=== PATIENT | male | born 1980 | race Caucasian/White ===

== ENCOUNTER 2017-12-11 14:57 | Emergency (ER) | payer MEDICAID, SELFPAY ==
[2017-12-11 14:58] VITALS: BP 130/100; PULSE 97; RESP 16; TEMP 36.7; O2SAT 96; BMI 23.3
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
[2017-12-11 16:01] VITALS: BP 146/99; RESP 18
== END 2017-12-11 16:01 | disposition home or self-care (01) ==
PROVIDERS: Emergency Provider Emergency Medicine
DX: S62.324A Displaced fracture of shaft of fourth metacarpal bone, right hand, initial encounter for closed fracture (principal); V89.9XXA Person injured in unspecified vehicle accident, initial encounter; Y93.89 Activity, other specified; Y92.89 Other specified places as the place of occurrence of the external cause; Y99.8 Other external cause status
CPT/HCPCS: 29125; 73130; 99282

== ENCOUNTER 2018-08-25 13:27 | Emergency (ER) | payer MEDICAID, SELFPAY ==
[2018-08-25 13:28] VITALS: BP 151/99; PULSE 107; RESP 16; TEMP 37.1; O2SAT 95; BMI 23.1
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
--- NOTE | 2018-08-25 14:51 | ED.VISSUMM ---
- ER Visit Summary Date of Service: 08/25/18 Chief Complaint: Abdominal distention, blood in stool History of Present Illness: The patient is a 38 M with medical history of internal hemorrhoids who presents to the emergency department with blood in stool. Patient states for the past 2 months, he has had increasing abdominal distention. He states when he moves his bowels, he will have cherise blood. He states that he had something similar last year. He has she went and had colonoscopy by Dr. Martin. He states that they did not find any acute abnormalities. He states he did not follow-up after that. States over the past 2 months, he said some abdominal swelling, increasing distention, and pain when he moves his bowels. He states that he has had some bright red blood with bowel movements. He does not think he had fever, but does admit to chills. He does not know any specific foods that seem to make his symptoms worse. He has no history of Crohn's disease or ulcerative colitis. Physical Examination: Vital signs reviewed General: Well-nourished, well-developed Head: Normocephalic, atraumatic Eyes: Pupils equal and reactive, extraocular muscles intact Neck, supple, no lymphadenopathy Heart: Regular rate and rhythm Respiratory: No distress, clear bilaterally Abdomen: Soft, mildly distended, tender in the left lower quadrant without rebound or guarding, no peritoneal signs Back: Nontender Extremities: Nontender, no edema, no cords Skin: Normal color no rash Neuro: Alert and oriented, no focal or lateralizing deficits Test Results: [] Emergency Department Course and Treatment: The patient has had intermittent rectal bleeding. His rectal exam is benign. Given his history, I did obtain a CT of his abdomen and pelvis. Labs were also obtained. His hemoglobin is normal. CT does not show any acute intra-abdominal process. At this time, I do not suspect a dangerous cause of his bleeding. I do feel that the patient is going to require further outpatient workup. He has seen Dr. Ordonez in the past and I feel that this is reasonable. He will be placed on Bentyl, antiemetics, and stool softeners. He is comfortable with this plan of care and will be discharged home. Treatment Plan: [] Disposition: Discharge Impression: 1. Stable rectal bleeding This note was generated with Mobile Messengeration software. It may contain incorrect words, spelling, and punctuation that were not noted in review of the chart prior to signing ED Disposition - Plan for ED Patient: Disposition: Home or Assisted Living Chief Complaint: GI Bleed Instructions: ED Hematochezia Stable Prescriptions: Ondansetron [Zofran Odt] 4 mg PO Q8H PRN PRN #10 tab PRN Reason: Nausea RX: Dicyclomine HCl [Bentyl] 20 mg PO TIDAC #20 cap Docusate Sodium [Colace] 100 mg PO DAILY #20 cap Referrals: James Martin MD [STAFF PHYSICIAN] -
[2018-08-25 15:16] LABS: Absolute Lymphocyte Count 3.62 X10^3/ul (0.83-4.51); Absolute Neutrophil Count 4.4 X10^3/uL (2.0-7.7); Basophil# 0.06 X10^3/uL; Basophil% 0.6 % (0-1); Eosinophil# 0.66 X10^3/uL; Eosinophils% 6.9 % (0-5); Hematocrit 46.2 % (40-54); Hemoglobin 15.8 g/dl (13.0-16.5); Lymphocyte # 3.62 X10^3/ul (4.0); Lymphocyte % 37.8 % (19-41); Mean Corp Hgb Conc 34.2 g/gl (32-36); Mean Corpuscular Hgb 31.7 pg (27.0-32.0); Mean Corpuscular Volume 92.6 fL (80-94); Mean Platelet Vol. 10.1 fl (6.2-12.0); Monocyte# 0.83 X10^3/uL; Monocyte% 8.7 % (0-10); Neutrophil # 4.38 X10^3/uL (2.7-7.7); Neutrophil % 45.8 % (47-70); POSITIVE COUNT NO; POSITIVE DIFFERENTIAL NO; POSITIVE MORPHOLOGY NO; Platelet Count 248 K/mm3 (150-450); RBC Distribution Width CV 13.6 % (11.6-14.6); RBC Distribution Width SD 45.4 fl (35.1-43.9); Red Blood Count 4.99 M/mm3 (4.6-6.2); White Blood Count 9.6 K/mm3 (4.4-11.0)
[2018-08-25] MEDS: Morphine 4 MG/ML Syringe IV (15:17)
[2018-08-25] MEDS: Ondansetron 4 MG/2 ML Vial IV (15:17)
[2018-08-25] MEDS: 0.9% Normal Saline 1,000 ML 1000 ML IV (15:17)
[2018-08-25 15:30] LABS: AST(SGOT) 21 U/L (15-37); Alanine Aminotransfer ALT/SGPT 48 U/L (16-61); Albumin, Serum 3.8 g/dL (3.2-5.0); Alkaline Phosphatase 107 U/L (45-117); Anion Gap 4 (5-15); BUN 13 mg/dL (7-18); BUN/Creat Ratio 14.8 RATIO (10-20); Calcium,Total 9.4 mg/dL (8.5-10.1); Chloride 108 mmol/L (98-107); Creatinine, Serum 0.88 mg/dL (0.70-1.30); EST Glomerular Filtration Rate 104 mL/min (>60); Est Glom Filt Rate - Afr Amer 126 mL/min (>60); Estimated Creatinine Clearance 134.02 ml/min; Globulin 3.7 g/dL (2.2-4.2); Glucose 99 mg/dL (74-106); Potassium 4.3 mmol/L (3.5-5.1); Protein, Total 7.5 g/dL (6.4-8.2); Sodium Level 141 mmol/L (136-145)
[2018-08-25 15:43] LABS: Lactic Acid 0.8 mmol/L (0.4-2.0)
[2018-08-25 16:08] VITALS: BP 163/103; PULSE 69; RESP 15; O2SAT 99
[2018-08-25 18:14] VITALS: BP 129/77; PULSE 61; RESP 15; O2SAT 98
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
== END 2018-08-25 18:15 | disposition home or self-care (01) ==
LOC: ED 15:06
PROVIDERS: Emergency Provider Emergency Medicine
DX: K62.5 Hemorrhage of anus and rectum (principal); K64.8 Other hemorrhoids
CPT/HCPCS: 74177; 80053; 83605; 85025; 96361; 96374; 96375; 99283; J7030; Q9967; A4216; J2405

== ENCOUNTER 2018-10-06 09:22 | Day surgery (SDC) | payer MEDICAID, SELFPAY ==
[2018-09-18 15:21] VITALS: BMI 23.1
--- NOTE | 2018-10-06 | IMM_PTH ---
PATIENT: DYLLAN CARDENAS LOC: [facility] [place] U#:[id number] AGE/SX: 38/M ROOM: RE10/06/[address]: Dr. James Martin MD : 1980 BED: DIS: 10/06/2018 SPEC #: [id number] RECD: 10/08/18 14:52 STATUS: REGIS RERonen #: [id number] CECILIO: 10/06/18 00:[address]: James Martin DEPT: IMMUNOHISTOCHEMISTRY RECD BY: Shelly Ortiz ENTERED: 10/08/18 14:53 SP TYPE: IMMUNO OTHR DR: No Primary Care Phys Tissues: HEMORRHOIDS Procedures: p16 (initial) KI-67 (add) PHYSICIAN & INSTITUTION [place] [id number] SPECIMEN INFORMATION: Tissue Source: Hemorrhoids Clinical Info: Painful, bleeding hemorrhoids Specimen Number: [id number] CPT code: 14998, 98411 METHODOLOGY: Deparaffinized sections of prefer/formalin-fixed tissue or PAP/DQ stained slides are incubated with monoclonal/polyclonal antibodies/oligonucleotide probes. Localization is made via biotin free immunoperoxidase method. Appropriate controls are performed and reacted as expected. Results on target cell population are indicated in the following table: RESULTS: ANTIBODY / CLONE RESULT P16 (E6H4) positive, block staining Ki-67 (30-9) positive, moderate These tests were developed and their performance characteristics determined by [facility]. They may not have been cleared or approved by the U.S. Food and Drug Administration. The FDA has determined that such clearance or approval is not necessary. INTERPRETATION: Hemorrhoids: Consistent with moderate squamous dysplasia. SJ:delta 10/09/18 Case has been reviewed in consultation with Dr. Ziegler who concurs with the above diagnosis. IDC:AM
[2018-10-06 09:58] VITALS: BP 140/88; PULSE 78; RESP 18; TEMP 37.1; O2SAT 97; BMI 23.6
[2018-10-06] MEDS: Cefazolin 2 GM in 0.9% Normal Saline 100 ML IV (11:57)
[2018-10-06] MEDS: Bupivacaine 0.5% PF 10 ML VIAL (12:12)
[2018-10-06] MEDS: Lubricating Jelly 60 GM Tube 30 GM TOPICAL (12:17)
[2018-10-06] MEDS: Dibucaine 30 GM Tube 1 APPLIC (12:18)
--- NOTE | 2018-10-06 12:28 | PCM.OPRPT ---
Problem List (1) Internal ulcerated hemorrhoids Status: Acute (2) Rectal bleeding Status: Acute Report of Operation Date of Procedure: 10/06/18 Pre-Operative Diagnosis: 1. GI bleeding. 2. Painful internal hemorrhoid grade 3 Post-Operative Diagnosis: Same Surgery/Procedure Performed:: Exam under anesthesia and hemorrhoidectomy Specimen's removed: Anterior hemorrhoid Description of Procedure: The patient was brought back to the operating room and general anesthesia was induced. The patient was placed in a prone jackknife position. The gluteal area was exposed with tape. Next the anal area was prepped with Betadine. A digital rectal exam and speculum exam were performed. The patient only had a large anterior hemorrhoid. The posterior and lateral columns appeared normal. Next a chromic suture was used to tie off the base of the hemorrhoid at its most internal apex. Next the hemorrhoid tissue was scored on both sides with the scalpel and then using digital dissection the hemorrhoidal cushion was from the sphincter. Next once the hemorrhoid was removed the edges of mucosa were reapproximated with a running chromic locked suture. There is good hemostasis. The area was irrigated and suctioned. Next the area was then injected with Marcaine and a dibucaine soaked Gelfoam pad was placed rolled up into the anal canal. ABD and mesh panties were then applied and the patient was awoken and taken to PACU in stable condition. The patient tolerated the procedure well. Needle and sponge counts were correct x2 at the end of the case. - Admit VTE Documentation VTE Mechan Device Prophylaxis: SCD's
--- NOTE | 2018-10-06 12:33 | DCINST_ITS ---
Discharge Diet: No Restrictions Discharge Activity: Return to Normal Activity, May Not Drive - while you are taking narcotic pain medications. Do not drive, work with heavy equipment or sign legal documents for 24 hours after your surgery. Additional Activity Instructions:: Be aware that pain medications may cause nausea. You should typically eat light foods as you take your pain medications. Pain medications may also cause constipation, if you have difficulty with this please discuss with your doctor. Call your doctor if your incision/area has: Continuous Slow Oozing, Sudden Increased Bleeding, Increased Pain/ Swelling, Increased Redness, Foul Smelling Discharge, Swelling at the incision site Call your doctor if you observe: Fever of 101 or Higher Additional Dressing/Incision Instructions:: Leave the operative bandage on for 2 days. If a local anesthetic plug was placed in the anal area, try not to expel for 24-[address]ucaine ointment on the perianal area after each bowel movement and as needed. Sitz baths twice daily and after bowel movements. Allergies/Adverse Reactions: Allergies codeine Allergy (Verified 09/19/18 15:01) Hives Medications to take at Discharge Dicyclomine HCl [Bentyl] 20 mg PO TIDAC #20 cap 08/25/18 Docusate Sodium [Colace] 100 mg PO DAILY #20 cap 08/25/18 Ondansetron [Zofran Odt] 4 mg PO Q8H PRN PRN #10 tab 08/25/18 Docusate Sodium [Colace] 100 mg PO BID #20 capsule 10/06/18 Oxycodone HCl/Acetaminophen [Percocet 5/325] 1 - 2 tablet PO Q4H PRN PRN 7 Days #40 tablet 10/06/18 The following prescriptions were given: Oxycodone HCl/Acetaminophen [Percocet 5/325] 1 - 2 tablet PO Q4H PRN PRN 7 Days #40 tablet PRN Reason: Pain Docusate Sodium [Colace] 100 mg PO BID #20 capsule Primary Care Physician: Care Physician,No Primary [Primary Care Provider] - Test Results: Test results from this visit will be discussed in further detail at your follow- up appointment, if applicable. Please Follow Up With: James Martin MD When: Please call to schedule 2 week follow up appointment. [phone]
[2018-10-06 12:39] VITALS: BP 140/88; BP 165/107; PULSE 88; RESP 16; TEMP 36.7; O2SAT 96
[2018-10-06 12:45] VITALS: BP 140/88; BP 156/109; PULSE 82; RESP 16; O2SAT 95
[2018-10-06 12:59] VITALS: BP 140/88; BP 161/112; PULSE 69; RESP 18; O2SAT 98
--- NOTE | 2018-10-06 13:00 | HEM_PTH ---
PATIENT: DYLLAN CARDENAS [place] [facility] [place][id number] AGE/SX: 38/M ROOM: RE10/06/[address]: Dr. James Martin MD : 1980 BED: DIS: 10/06/2018 SPEC #: [id number] RECD: 10/06/18 15:22 STATUS: REGIS RADHA #: [id number] CECILIO: 10/06/18 13:[address]: James Martin DEPT: SURGICAL PATHOLOGY RECD BY: Taurus Arriaga ENTERED: 10/07/18 11:45 SP TYPE: HEMORRHOID OTHR DR: No Primary Care Phys Tissues: HEMORRHOIDS Procedures: Surgery Specimen Level III HEADER OPERATION: Rectal EUA, possible hemorrhoidectomy PRE-OP DIAGNOSIS: Painful hemorrhoids, bleeding TISSUE SUBMITTED: Hemorrhoids MICROSCOPIC DIAGNOSIS Hemorrhoids: A piece of anorectal mucosa with dilated and congested blood vessels, consistent with hemorrhoid. Moderate squamous dysplasia (HGSIL and DANIEL II). See comment. BEATRIZ:delta 10/08/18 COMMENT Immunohistochemistry ([id number]) for surrogate HPV marker (p16) supports the above diagnosis. This case has been reviewed in consultation with Dr. Ziegler who concurs with the above diagnosis. MICROSCOPIC DESCRIPTION Slides are reviewed. GROSS DESCRIPTION Received in fixative is one container labeled with the patient's name and designated hemorrhoids. The specimen consists of a single irregular fragment of glistening mucosa with attached hemorrhagic submucosal tissue measuring 2.5 x 1 x 1 cm. The specimen is bisected along its long axis and totally submitted in one cassette. / AM:delta 10/07/18 TC:5 CPT: 97672
[2018-10-06 13:14] VITALS: BP 140/88; BP 155/99; PULSE 69; RESP 18; TEMP 36.6; O2SAT 97
[2018-10-06] MEDS: oxyCODONE 5 MG Tablet PO (13:34)
[2018-10-06] MEDS: Acetaminophen 325 MG Tablet 650 MG PO (13:55)
[2018-10-06 14:23] VITALS: BP 140/88; BP 148/98; PULSE 55; RESP 16; TEMP 36.9; O2SAT 97
== END 2018-10-06 14:26 | disposition home or self-care (01) ==
LOC: SDC 09:22 → AC 09:34
PROVIDERS: Referring Provider Surgery; Visit Provider Surgery
PROC: (CPT 46255; principal; 2018-10-06 12:45)
DX: K64.2 Third degree hemorrhoids (principal); F17.200 Nicotine dependence, unspecified, uncomplicated; Z79.899 Other long term (current) drug therapy
CPT/HCPCS: 46255; 88304; 88341; 88342; J7120; J2405

== ENCOUNTER → 2018-10-13 09:51 | Outpatient (CLI) | payer MEDICAID, SELFPAY ==
[2018-10-06 09:58] VITALS: BMI 23.6
[2018-10-13 11:52] LABS: HIV - WCH Non-Reactive (Nonreactive)
== END ==
PROVIDERS: Visit Provider Surgery
DX: K62.82 Dysplasia of anus (principal)
CPT/HCPCS: 36415; 86703

== ENCOUNTER → 2018-11-24 07:26 | Outpatient (CLI) | payer MEDICAID, SELFPAY ==
[2018-11-12 16:19] VITALS: BMI 24.6
[2018-11-24 09:00] LABS: BUN 24 mg/dL (7-18); Creatinine, Serum 0.99 mg/dL (0.70-1.30); Glucose 103 mg/dL (74-106)
[2018-11-24 09:01] LABS: Anion Gap 9 (5-15); BUN/Creat Ratio 24.2 RATIO (10-20); Calcium,Total 10.1 mg/dL (8.5-10.1); Chloride 109 mmol/L (98-107); EST Glomerular Filtration Rate 91 mL/min (>60); Est Glom Filt Rate - Afr Amer 110 mL/min (>60); Sodium Level 142 mmol/L (136-145)
== END ==
PROVIDERS: Family Provider Internal Medicine; PCP Internal Medicine; Referring Provider Nurse Practitioner Family; Visit Provider Nurse Practitioner Family
DX: I10 Essential (primary) hypertension (principal)
CPT/HCPCS: 36415; 80048

== ENCOUNTER → 2018-12-11 14:13 | Outpatient (CLI) | payer MEDICAID, SELFPAY ==
[2018-11-27 15:00] VITALS: BMI 24.6
--- NOTE | 2018-12-11 14:17 | EKG12_ITS ---
Test Reason : Blood Pressure : / mmHG Vent. Rate : 075 BPM Atrial Rate : 075 BPM P-R Int : 140 ms QRS Dur : 084 ms QT Int : 360 ms P-R-T Axes : 036 016 017 degrees QTc Int : 402 ms Normal sinus rhythm Minimal voltage criteria for LVH, may be normal variant Borderline ECG Confirmed by STEVE GOEL, VANDANA ([id number]), editorial cartoonist LENORA MTZ ([id number]) on 12/12/2018 8:35:55 AM Referred By: Landen Ferraro Confirmed By:VANDANA WILSON MD
[2018-12-11 14:57] LABS: Absolute Lymphocyte Count 3.73 X10^3/ul (0.83-4.51); Absolute Neutrophil Count 3.8 X10^3/uL (2.0-7.7); Basophil# 0.06 X10^3/uL; Basophil% 0.7 % (0-1); Eosinophil# 0.65 X10^3/uL; Eosinophils% 7.3 % (0-5); Hematocrit 47.3 % (40-54); Hemoglobin 15.9 g/dl (13.0-16.5); Lymphocyte # 3.73 X10^3/ul (4.0); Lymphocyte % 41.8 % (19-41); Mean Corp Hgb Conc 33.6 g/gl (32-36); Mean Corpuscular Volume 92.2 fL (80-94); Mean Platelet Vol. 10.3 fl (6.2-12.0); Monocyte# 0.69 X10^3/uL; Monocyte% 7.7 % (0-10); Neutrophil # 3.79 X10^3/uL (2.7-7.7); Neutrophil % 42.4 % (47-70); Platelet Count 272 K/mm3 (150-450); RBC Distribution Width CV 13.5 % (11.6-14.6); RBC Distribution Width SD 44.5 fl (35.1-43.9); Red Blood Count 5.13 M/mm3 (4.6-6.2); White Blood Count 8.9 K/mm3 (4.4-11.0)
[2018-12-11 15:00] LABS: POSITIVE COUNT NO; POSITIVE DIFFERENTIAL NO; POSITIVE MORPHOLOGY NO
[2018-12-11 15:17] LABS: Cholesterol 238 mg/dL (200); High Density Lipoprotein 37 mg/dL; Triglycerides 399 mg/dL; Very Low Density Lipoprotein 80 mg/dL (5-40)
== END ==
PROVIDERS: Family Provider Internal Medicine; PCP Internal Medicine; Referring Provider Internal Medicine; Visit Provider Internal Medicine
DX: E78.5 Hyperlipidemia, unspecified (principal); R53.83 Other fatigue; I10 Essential (primary) hypertension
CPT/HCPCS: 36415; 80061; 85025; 93005

== ENCOUNTER → 2019-01-09 | Outpatient (CLI) | payer MEDICAID, SELFPAY ==
[2018-12-25 13:08] VITALS: BMI 24.6
--- NOTE | 2019-01-09 08:40 | ECHOCS_ITS ---
Reason For Study: HTN Procedure This was a 2D Doppler, Color Flow transthoracic echocardiogram. Contrast injection was performed. Exam performed in department. Left Ventricle Normal LV size. Mild concentric left ventricular hypertrophy. Left ventricular systolic function is normal. The estimated ejection fraction is 60 %. No regional wall motion abnormalities noted. Right Ventricle Normal RV size. Normal systolic function. Atria Normal left atrium. Normal right atrium. Mitral Valve Normal mitral valve. Mild (1+) eccentric mitral valve insufficiency. Tricuspid Valve Normal tricuspid valve. Aortic Valve Normal aortic valve. Trisinus/trileaflet aortic valve. Pulmonic Valve Normal pulmonic valve. Great Vessels Normal aortic root. The pulmonary artery is normal size. Normal inferior vena cava. Pericardium/Pleural No pericardial effusion. Medication Definity0.3ml given slow IV push to enhance endocardial definition. MMode/2D Measurements & Calculations LVIDd: 4.1 cm IVSd: 1.4 cm Ao root diam: 3.1 cm LVIDs: 2.7 cm LVPWd: 1.4 cm RVDd: 3.5 cm FS: 33.0 % LAV(MOD-bp): 38.6 ml LVAd ap4: 37.1 cm2 SV(MOD-sp4): 74.8 ml LAV(MOD-bp) Indexed: 18.3 ml/m2 EDV(MOD-sp4): 116.4 ml LAV(MOD-sp2): 43.4 ml EDV(sp4-el): 122.9 ml LAV(MOD-sp4): 32.3 ml LVAs ap4: 18.9 cm2 ESV(MOD-sp4): 41.6 ml ESV(sp4-el): 40.0 ml EF(MOD-sp4): 64.3 % EF(sp4-el): 67.4 % SV(sp4-el): 82.9 ml LA A4 area: 14.2 cm2 LA dimension(2D): 3.2 cm RA A4 area: 14.3 cm2 Doppler Measurements & Calculations MV E max martínez: 45.7 cm/sec Lat Peak E' Martínez: 7.4 cm/sec Med Peak E' Martínez: 6.0 cm/sec MV A max martínez: 77.0 cm/sec E/E' lat: 6.2 E/E' med: 7.6 MV E/A: 0.59 Ao V2 max: 146.9 cm/sec LV V1 max: 109.1 cm/sec PA V2 max: 110.7 cm/sec Ao max P.6 mmHg LV V1 max P.8 mmHg Ao V2 mean: 104.6 cm/sec Ao mean P.8 mmHg Ao V2 VTI: 28.7 cm Interpretation Summary Normal LV size. Mild concentric left ventricular hypertrophy. Left ventricular systolic function is normal. The estimated ejection fraction is 60 %. Mild (1+) eccentric mitral valve insufficiency. Contrast injection was performed. Ordering Physician: Landen Ferraro Referring Physician: Landen Ferraro Performed By: Argelia Oliveira, STEPHANIE, RVT
--- NOTE | 2019-01-09 08:40 | RDU_ITS ---
Reason For Study: HYPERTENSION Right Renal Artery Left Renal Artery Right renal artery ostium Left renal artery ostium 120.3/42.7 123.7/24.7 RSV/EDV. PSV/EDV. Right renal artery proximal Left renal artery proximal PSV/EDV 141.3/38.3 PSV/EDV. 122.3/44.6 . Right renal artery mid 164.6/58.9 Left renal artery mid 135.3/62.7 PSV/EDV. PSV/EDV . Right renal artery distal Left renal artery distal 130.0/44.3 149.4/55.6 PSV/EDV. PSV/EDV. Right Renal Parenchyma Left Renal Parenchyma Upper Pole Medula 32.1/14.9 Left upper pole medulla 47.4/22.2 PSV/EDV. PSV/EDV . Right upper pole medulla EDR .46 . Left upper pole medulla EDR .47 . Right upper pole medulla R.I. .54 . Left upper pole medulla R.I. .53 . Upper Romario Cortx 28.4/14.2 PSV/EDV. UP Cortex 37.5/15.6 PSV/EDV. Right upper pole cortex EDR .5 . Left upper pole cortex EDR .42 . Right upper pole cortex R.I. .50 . Left upper pole cortex R.I. .58 . Right lower Pole medulla 40.0/19.8 Left lower Pole medulla 48.5/17.8 PSV/EDV . PSV/EDV . Right lower pole medulla EDR .49 . Left lower pole medulla EDR .37 . Right lower pole medulla R.I. .51 . Left lower pole medulla R.I. .63 . Lower Pole Cortex 34.5/16.7 Lower Pole Cortx 48.5/23.3 PSV/EDV. PSV/EDV. Left lower pole cortex EDR .48 . Right lower pole cortex EDR .48 . Left lower pole cortex R.I. .52 . Right lower pole cortex R.I. .52 . Left Renal Hilar Right Renal Hilar LT Hilar avg 63.9/21.1 PSV/EDV . Right Hilar avg 74.1/30.1 PSV/EDV. Left hilar acceleration time 70 Right hilar acceleration time 60 m/sec. m/sec. Left Renal Dimensions Right Renal Dimensions Left kidney size 12.0 cm . Right kidney size 11.3 cm . Left cortical dimension 1.7 cm . Right cortical dimension 1.5 cm . Aorta Proximal abdominal aorta 1.5 x 1.4 cm . Distal abdominal aorta 1.3 x 1.3 cm . Proximal abdominal aorta peak systolic velocity is 109.4 cm/sec . Distal abdominal aorta peak systolic velocity is 148.2 cm/sec . Interpretation Summary <60% stenosis bilateral renal arteries. Normal renal length right kidney 11.3cm and left kidney 12 cm Normal aorta 1.3 x 1.3cm diameter Slightly increased aortic velocity suspicous for mild disesae. Ordering Physician: Landen Ferraro Referring Physician: Landen Ferraro Performed By: Ailyn Escamilla RVT
[2019-01-09 10:58] LABS: ALB/GLOB Ratio 1.1 RATIO (0.9-2.4); AST(SGOT) 31 U/L (15-37); Alanine Aminotransfer ALT/SGPT 67 U/L (16-61); Albumin, Serum 4.1 g/dL (3.2-5.0); Alkaline Phosphatase 105 U/L (45-117); Anion Gap 5 (5-15); BUN 13 mg/dL (7-18); BUN/Creat Ratio 14.6 RATIO (10-20); Chloride 110 mmol/L (98-107); Creatinine, Serum 0.89 mg/dL (0.70-1.30); EST Glomerular Filtration Rate 103 mL/min (>60); Est Glom Filt Rate - Afr Amer 124 mL/min (>60); Globulin 3.6 g/dL (2.2-4.2); Glucose 93 mg/dL (74-106); Potassium 4.3 mmol/L (3.5-5.1); Protein, Total 7.7 g/dL (6.4-8.2); Sodium Level 141 mmol/L (136-145); T4 Free Direct 0.89 ng/dL (0.76-1.46); Thyroid Stim Hormone (TSH) 0.96 uIU/mL (0.358-3.74)
== END | disposition home or self-care (01) ==
LOC: CVS 08:38
PROVIDERS: Family Provider Internal Medicine; PCP Internal Medicine; Referring Provider Internal Medicine; Visit Provider Internal Medicine
DX: I10 Essential (primary) hypertension (principal); R00.0 Tachycardia, unspecified
CPT/HCPCS: 36415; 80053; 84439; 84443; 93306; 93975; Q9957; A4216; C8929

== ENCOUNTER 2019-01-24 18:13 | Emergency (ER) | payer MEDICAID, SELFPAY ==
[2019-01-09 11:18] VITALS: BMI 24.6
[2019-01-24 18:15] VITALS: BP 163/106; PULSE 117; RESP 16; TEMP 36.8; O2SAT 99; BMI 25.0
--- NOTE | 2019-01-24 18:34 | CT_ITS ---
STUDY: CT ABDOMEN AND PELVIS WITHOUT CONTRAST REASON FOR EXAM: Male, 38 years old. Left flank pain RADIATION DOSAGE (If Supplied By Facility): CTDIvol = ( 7.49 ) mGy, DLP = ( 422.77 ) mGycm TECHNIQUE: Transaxial images were obtained from the dome of the diaphragm to the symphysis pubis without oral contrast, and without intravenous contrast. Sagittal and coronal images were reconstructed. Individualized dose optimization techniques were used for this CT. COMPARISON: CT 08/25. FINDINGS: This is a limited non-IV nonoral contrast study. The lung bases are unremarkable. The visualized portions of the heart are within normal limits. Normal liver. Normal gallbladder and extrahepatic biliary system. Normal spleen. Normal pancreas. Normal bilateral adrenal glands. There is prominent anterior aspect of the left ventricle. Normal right kidney. Normal left kidney. No renal or ureteral calculi. No hydronephrosis Normal visualized stomach. Normal small intestine. There is a moderate colonic fecal load. The appendix is visualized and appears normal. Normal abdominal aorta. Normal inferior vena cava. Normal retroperitoneum. Normal urinary bladder. Normal abdominal wall. Degenerative changes and/or postsurgical changes versus spondylitic defect at L5 on the right. CT/Abdomen/Pelvis without Cont IMPRESSION: No renal or ureteral calculi or hydronephrosis Moderate colonic fecal load Prominent anterior aspect of the left ventricle, normal variant versus hypertrophy, aneurysm cannot be excluded. This could be further evaluated with cardiac echo Degenerative changes and/or postsurgical changes versus spondylitic defect at L5 on the right. Electronically Signed: Manolo Abreu, at 20:15 EDT Tel , Service support ,
--- NOTE | 2019-01-24 18:39 | ED.VISSUMM ---
- ER Visit Summary Date of Service: 01/24/19 Chief Complaint: Left flank pain History of Present Illness: The patient is a 38 M past medical history of hypertension, high cholesterol, kidney stone and recently diagnosed with possible renal artery stenosis. Patient states that he developed flank pain for last 2 days. No associated nausea, vomiting or diarrhea. No dysuria or hematuria. No fever. No trauma. Ill similar to prior kidney stones but does not hurt as bad. Nothing specifically makes the pain better or worse. Physical Examination: Well-appearing young male. Vital signs stable and afebrile. HEENT exam unremarkable. Neck nontender. Lungs clear to auscultation bilaterally. Heart regular rhythm no murmur. Abdomen soft nontender. Normal bowel sounds. No peritoneal signs. Moving all 4 extremities. Neurovascular intact. Back has mild CVA tenderness. No ecchymosis or bruising no signs of trauma. No redness or warmth. Neurologically he is awake alert with no focal motor deficits. Test Results: CBC normal white count 9. Hemoglobin 16. Chemistries unremarkable with a normal creatinine and gap. UA normal. CT flank study without contrast showed increased stool. Otherwise no acute signs of what is causing his flank pain. No stone or other acute etiologies. Reviewed by me and read by the radiologist. Emergency Department Course and Treatment: Patient with left flank pain will undergo a CT and appropriate labs and urinalysis. He will receive morphine and Zofran for pain. Multiple repeat exams the patient is doing well and feels better after the medication. I went over all test results with him. Treatment Plan: Motrin for pain. Follow-up with his primary care physician. Disposition: Discharge Impression: Acute left flank pain of uncertain etiology This note was generated with [employer] dictation software. It may contain incorrect words, spelling, and punctuation that were not noted in review of the chart prior to signing ED Disposition - Plan for ED Patient: Referrals: Landen Ferraro MD [Primary Care Provider] -
[2019-01-24] MEDS: morphine 8 MG/ML Syringe 6 MG IV (18:54)
[2019-01-24] MEDS: Ondansetron 4 MG/2 ML Vial IV (18:54)
[2019-01-24 19:05] LABS: Mucous, Urine 0 SEEN /hpf (<or=2+); Squamous Epithelial Cells - UA 0 SEEN /hpf (0-5); White Blood Cells 0 SEEN /hpf (0-5)
[2019-01-24 19:07] LABS: Absolute Lymphocyte Count 3.93 X10^3/ul (0.83-4.51); Absolute Neutrophil Count 3.9 X10^3/uL (2.0-7.7); Basophil# 0.06 X10^3/uL; Basophil% 0.7 % (0-1); Eosinophil# 0.64 X10^3/uL; Hematocrit 47.1 % (40-54); Hemoglobin 16.7 g/dl (13.0-16.5); Lymphocyte # 3.93 X10^3/ul (4.0); Lymphocyte % 43.2 % (19-41); Mean Corp Hgb Conc 35.5 g/gl (32-36); Mean Corpuscular Hgb 32.4 pg (27.0-32.0); Mean Corpuscular Volume 91.3 fL (80-94); Mean Platelet Vol. 9.9 fl (6.2-12.0); Monocyte# 0.53 X10^3/uL; Monocyte% 5.8 % (0-10); Neutrophil # 3.92 X10^3/uL (2.7-7.7); Neutrophil % 43.1 % (47-70); Platelet Count 291 K/mm3 (150-450); RBC Distribution Width CV 13.4 % (11.6-14.6); RBC Distribution Width SD 44.5 fl (35.1-43.9); Red Blood Count 5.16 M/mm3 (4.6-6.2); White Blood Count 9.1 K/mm3 (4.4-11.0)
[2019-01-24 19:08] LABS: POSITIVE COUNT NO; POSITIVE DIFFERENTIAL NO; POSITIVE MORPHOLOGY NO
[2019-01-24 19:10] LABS: Color, Urine Yellow (Yellow); Glucose, Dipstick Normal (Normal); Ketone-Dipstick 5 mg/dl (Negative); Leukocyte Esterase-Dipstick Negative /ul (Negative); Nitrite-Dipstick Negative (Negative); Occult Blood-Urine Negative /ul (Negative); Protein-Dipstick Negative (Negative); Urine Bilirubin Dipstick Negative (Negative); Urine Clarity Clear (Clear); Urine Urobilinogen Normal (Normal)
[2019-01-24 19:15] LABS: Bacteria 1+ /hpf (None Seen); Red Blood Cells-Urine 0-5 SEEN /hpf (0-5)
[2019-01-24 19:16] LABS: Anion Gap 5 (5-15); BUN 16 mg/dL (7-18); BUN/Creat Ratio 15.8 RATIO (10-20); Chloride 108 mmol/L (98-107); Creatinine, Serum 1.01 mg/dL (0.70-1.30); EST Glomerular Filtration Rate 89 mL/min (>60); Est Glom Filt Rate - Afr Amer 107 mL/min (>60); Estimated Creatinine Clearance 114.27 ml/min; Glucose 129 mg/dL (74-106); Potassium 3.8 mmol/L (3.5-5.1); Sodium Level 140 mmol/L (136-145)
[2019-01-24 19:36] VITALS: BP 146/104; PULSE 86; RESP 16; O2SAT 96
[2019-01-24 19:37] VITALS: BP 146/104; PULSE 86; RESP 16; TEMP 36.8; O2SAT 96
[2019-01-24 20:14] VITALS: BP 146/104; PULSE 86; RESP 16; TEMP 36.8; O2SAT 96
--- NOTE | 2019-01-24 20:36 | ED.DEP ---
ED Disposition - Plan for ED Patient: Disposition: Home or Assisted Living Instructions: ED Flank Pain Uncertain Cause Referrals: Landen Ferraro MD [Primary Care Provider] - 3-5 Days if not improving Additional Instructions: Your labs, urinalysis and CAT scan were unremarkable except for constipation. We do not have a specific cause for your pain. Follow-up with your primary care physician. Motrin and Tylenol for pain.
[2019-01-24 20:45] VITALS: BP 128/99; PULSE 89; RESP 16; O2SAT 97
== END 2019-01-24 20:45 | disposition home or self-care (01) ==
PROVIDERS: Emergency Provider Emergency Medicine; Family Provider Internal Medicine; PCP Internal Medicine
DX: R10.9 Unspecified abdominal pain (principal); I10 Essential (primary) hypertension; E78.00 Pure hypercholesterolemia, unspecified; Z87.442 Personal history of urinary calculi; Z72.0 Tobacco use; Z79.899 Other long term (current) drug therapy
CPT/HCPCS: 74176; 80048; 81001; 85025; 96374; 96375; 99283; A4216; J2405

== ENCOUNTER → 2019-08-26 09:21 | Outpatient (CLI) | payer MEDICAID, SELFPAY ==
[2019-08-26 09:04] VITALS: BMI 25.0
[2019-08-26 12:39] LABS: Anion Gap 8 (5-15); BUN 15 mg/dL (7-18); BUN/Creat Ratio 15.6 RATIO (10-20); Calcium,Total 9.6 mg/dL (8.5-10.1); Chloride 110 mmol/L (98-107); Creatinine, Serum 0.96 mg/dL (0.70-1.30); EST Glomerular Filtration Rate 94 mL/min (>60); Est Glom Filt Rate - Afr Amer 113 mL/min (>60); Glucose 114 mg/dL (74-106); Sodium Level 143 mmol/L (136-145)
== END ==
PROVIDERS: Family Provider Internal Medicine; PCP Internal Medicine; Visit Provider Internal Medicine
DX: I10 Essential (primary) hypertension (principal)
CPT/HCPCS: 36415; 80048

== ENCOUNTER → 2019-08-31 11:41 | Outpatient (CLI) | payer MEDICAID, SELFPAY ==
[2019-08-31 08:33] VITALS: BMI 25.0
--- NOTE | 2019-08-31 08:45 | CYST_PTH ---
PATIENT: DYLLAN CARDENAS LOC: [facility] U#:[id number] AGE/SX: 45/M ROOM: RE08/31/[address]: Dr. James Martin MD : 1980 BED: DIS: SPEC #: [id number] RECD: 08/31/19 10:28 STATUS: REGIS RADHA #: [id number] CECILIO: 08/31/19 08:[address]: James Martin DEPT: SURGICAL PATHOLOGY RECD BY: Suresh Gale ENTERED: 08/31/19 12:34 SP TYPE: Cyst OTHR DR: Dr. Landen Ferraro MD Tissues: Scalp, NOS Procedures: Surgery Specimen Level III HEADER OPERATION: Excision of left scalp cyst PRE-OP DIAGNOSIS: Scalp cyst TISSUE SUBMITTED: Left scalp cyst MICROSCOPIC DIAGNOSIS Cyst of left scalp, excision: Trichilemmal cyst (pilar cyst). AM:delta 09/01/19 MICROSCOPIC DESCRIPTION Slides are reviewed. GROSS DESCRIPTION Received in fixative is one container labeled with the patient's name and designated left scalp cyst. The specimen consists of a genao nodule measuring 1 x 0.8 x 0.5 cm. The specimen is inked, bisected and reveals a cyst filled with genao sebum. The entire specimen is submitted in one cassette. / SJ:rg 08/31/19 TC:1 CPT: 64389
== END ==
PROVIDERS: Family Provider Internal Medicine; PCP Internal Medicine; Referring Provider Surgery; Visit Provider Surgery
DX: L72.9 Follicular cyst of the skin and subcutaneous tissue, unspecified (principal)
CPT/HCPCS: 88304

== ENCOUNTER 2019-10-01 15:15 | Emergency (ER) | payer MEDICAID, SELFPAY ==
[2019-08-31 08:33] VITALS: BMI 25.0
[2019-10-01 15:16] VITALS: BP 131/90; PULSE 90; RESP 16; TEMP 37; O2SAT 96; BMI 27.1
[2019-10-01 15:31] LABS: Bacteria 0 SEEN /hpf (None Seen); Mucous, Urine 0 SEEN /hpf (<or=2+); Red Blood Cells-Urine 0 SEEN /hpf (0-5)
[2019-10-01 15:44] LABS: Absolute Lymphocyte Count 3.28 X10^3/uL (0.83-4.51); Absolute Neutrophil Count 5.1 X10^3/uL (2.0-7.7); Basophil# 0.08 X10^3/uL; Basophil% 0.8 % (0-1); Eosinophil# 0.63 X10^3/uL; Eosinophils% 6.5 % (0-5); Hematocrit 45.4 % (40-54); Hemoglobin 15.5 g/dL (13.0-16.5); Lymphocyte # 3.28 X10^3/ul (4.0); Lymphocyte % 33.7 % (19-41); Mean Corp Hgb Conc 34.1 g/dL (32-36); Mean Corpuscular Hgb 30.4 pg (27.0-32.0); Mean Platelet Vol. 9.8 fl (6.2-12.0); Monocyte# 0.65 X10^3/uL; Monocyte% 6.7 % (0-10); NRBC Flagged by Analyzer 0 % (0-5); Neutrophil # 5.05 X10^3/uL (2.7-7.7); Platelet Count 263 K/mm3 (150-450); RBC Distribution Width CV 13.4 % (11.6-14.6); RBC Distribution Width SD 43.8 fl (35.1-43.9); White Blood Count 9.7 K/mm3 (4.4-11.0)
[2019-10-01 15:52] LABS: Color, Urine Yellow (Yellow); Glucose, Dipstick Normal (Normal); Ketone-Dipstick Negative (Negative); Leukocyte Esterase-Dipstick Negative /ul (Negative); Nitrite-Dipstick Negative (Negative); Occult Blood-Urine Negative /ul (Negative); Protein-Dipstick Negative (Negative); Specific Gravity, Urine 1.015 (1.002-1.030); Urine Bilirubin Dipstick Negative (Negative); Urine Clarity Clear (Clear); Urine Urobilinogen Normal (Normal)
[2019-10-01 16:12] LABS: Squamous Epithelial Cells - UA 0-5 SEEN /hpf (0-5); White Blood Cells 0-5 SEEN /hpf (0-5)
[2019-10-01 16:16] LABS: Anion Gap 6 (5-15); BUN 12 mg/dL (7-18); BUN/Creat Ratio 12.2 RATIO (10-20); Calcium,Total 9.3 mg/dL (8.5-10.1); Chloride 107 mmol/L (98-107); Creatinine, Serum 0.98 mg/dL (0.70-1.30); EST Glomerular Filtration Rate 91 mL/min (>60); Est Glom Filt Rate - Afr Amer 110 mL/min (>60); Estimated Creatinine Clearance 116.63 ml/min; Glucose 85 mg/dL (74-106); Potassium 3.6 mmol/L (3.5-5.1); Sodium Level 140 mmol/L (136-145)
[2019-10-01 17:40] VITALS: BP 147/104; PULSE 96; RESP 14; O2SAT 97
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
--- NOTE | 2019-10-01 19:41 | ED.RN ---
PT REPORTS WANTING TO GO OUTSIDE AND SMOKE. PT INFORMED THAT HIS IV WOULD HAVE TO BE D/C'D AND PER DR DIAS HE WOULD NEED TO SIGN OUT AMA. PT STATES I'VE ALREADY BEEN HERE FOR 4 HOURS AND IT'S FREAKING RIDICULOUS THAT I CAN'T GO DOWN THE BLOCK TO HAVE A CIGARETTE. I'M NOT GOING TO WAIT ANY LONGER AND I WANT THIS IV OUT. PT'S IV D/C AND A DRESSING PLACED. I ATTEMPTED TO HAVE PT SIGN AMA PAPERWORK. PT WALKING OFF THE DEPARTMENT, ATTEMPTED TO HAVE HIM SIGN, PT WOULD NOT STOP TO SIGN IT.
--- NOTE | 2019-10-01 19:54 | ED.DCSUM_ITS ---
- ER Visit Summary Date of Service: 10/01/19 Chief Complaint: Left flank pain History of Present Illness: The patient is a 39 M who presents with left flank pain that has been getting progressively worse over the past 1 to 2 weeks. Patient states the pain is intermittent and last approximate 1 hour. Patient describes the pain is sharp. Patient states pain is over the left flank. Patient states nothing makes it better or worse. Patient denies any nausea or vomiting. Patient denies any diarrhea, melena, or hematochezia. Patient denies any dysuria or hematuria. Patient denies any history of prior similar symptoms. Physical Examination: Vital signs are stable. Patient is afebrile. Patient is in no acute distress. Oral mucosa is pink and moist. Neck is supple. Trachea is midline. There is no JVD. Heart was regular rate and rhythm. Lungs are clear and equal bilaterally. Abdomen is soft. Bowel sounds are normal. There is some mild left flank tenderness. There is no rebound or guarding noted. Cranial nerves II through XII are intact. There are no focal motor or sensory deficits noted. Test Results: CBC, basic metabolic profile, and urinalysis were obtained and were within normal limits. CT scan of the abdomen and pelvis was obtained. There is epiploic appendagitis but no acute intra-abdominal process. This was interpreted by the radiologist and myself. Emergency Department Course and Treatment: Patient wanted to leave and go smoke. Patient left prior to receiving any discharge instructions. Epiploic appendagitis is self-limited. Patient was instructed to follow-up with his [facility] care physician in 5 to 7 days. Patient was instructed to return if worse in any way. Disposition: Discharge home Impression: 1. Abdominal pain 2. Epiploic appendagitis This note was generated with [employer] dictation software. It may contain incorrect words, spelling, and punctuation that were not noted in review of the chart prior to signing ED Disposition - Plan for ED Patient: Disposition: Home or Assisted Living Diagnosis: Left flank pain, Epiploic appendagitis Instructions: FLANK PAIN, Uncertain Cause Referrals: Landen Ferraro MD [Primary Care Provider] - 5-7 Days
== END 2019-10-01 19:41 | disposition home or self-care (01) ==
PROVIDERS: Emergency Provider Emergency Medicine; Family Provider Internal Medicine; PCP Internal Medicine
DX: K63.89 Other specified diseases of intestine (principal); I10 Essential (primary) hypertension; Z72.0 Tobacco use; Z79.899 Other long term (current) drug therapy
CPT/HCPCS: 74176; 80048; 81001; 85025; 99284; A4216

== ENCOUNTER → 2019-10-28 09:42 | Outpatient (CLI) | payer MEDICAID, SELFPAY ==
[2019-10-28 09:11] VITALS: BMI 27.1
--- NOTE | 2019-10-28 09:44 | RAD_ITS ---
HISTORY: Soft tissue mass for a while. Exam is 3 images of the right third digit. Findings: On the dorsum of the finger, Dorsal to the distal third diaphysis of the third proximal phalanx there is a soft tissue mass. It is only evident as heterogeneity to the contour of the skin on the dorsal aspect of the finger. There is no underlying osseous erosion. Bony alignment is normal. Joint spaces are preserved. There are no calcifications within the mass. RAD/Finger(s) Min 2 Views IMPRESSION: Soft tissue prominence at the level of the distal end of the third proximal phalanx consistent with a soft tissue mass without underlying erosion. at 0306 Reported and signed by: Carlos Montano MD Electronically Signed: Carlos Montano MD at 3:05 EST Tel , Service support ,
== END ==
PROVIDERS: PCP Internal Medicine; Referring Provider Surgery; Visit Provider Surgery
DX: R22.31 Localized swelling, mass and lump, right upper limb (principal); Z87.81 Personal history of (healed) traumatic fracture
CPT/HCPCS: 73140

== ENCOUNTER 2019-11-09 11:52 | Day surgery (SDC) | payer MEDICAID, SELFPAY ==
[2019-10-28 09:11] VITALS: BMI 27.1
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
[2019-11-09 12:36] VITALS: BP 152/88; PULSE 78; RESP 16; TEMP 37.1; O2SAT 97; BMI 26.7
[2019-11-09] MEDS: Lactated Ringers 1,000 ML 100 ML IV (12:45)
--- NOTE | 2019-11-09 14:00 | MASS_PTH ---
PATIENT: DYLLAN CARDENAS [place] [facility] [place] U#:[id number] AGE/SX: 39/M ROOM: RE11/09/[address]: Dr. Juwan Xiao MD : 1980 BED: DIS: 11/09/2019 SPEC #: [id number] RECD: 11/09/19 16:49 STATUS: REGIS RADHA #: [id number] CECILIO: 11/09/19 14:[address]: Juwan Xiao DEPT: SURGICAL PATHOLOGY RECD BY: Anderson Wagner ENTERED: 11/10/19 10:04 SP TYPE: Mass OTHR DR: Dr. 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 Negative for malignancy. BEATRIZ:delta 11/11/19 COMMENT Case has been reviewed in consultation with Dr. Ziegler who concurs with the above diagnosis. IDC:AM MICROSCOPIC DESCRIPTION Slides are reviewed. GROSS DESCRIPTION Received in fixative is one container labeled with the patient's name and designated 1 cm soft tissue mass right long finger. The specimen consists of an irregular piece of pink, congested soft tissue measuring in aggregate 2 x 1 x 0.3 cm. The entire specimen is submitted in one cassette. / BEATRIZ:delta 11/10/19 TC:5 CPT: 02003
[2019-11-09] MEDS: Cefazolin 2 GM in 0.9% Normal Saline 100 ML IV (14:09)
[2019-11-09] MEDS: Mupirocin Ointment 22gm Tube 1 APPLIC (14:55)
--- NOTE | 2019-11-09 14:59 | PCM.OPRPT ---
Report of Operation Date of Procedure: 11/09/19 Pre-Operative Diagnosis: 1. 1 cm soft tissue mass right long finger on dorsal radial aspect at PIP joint. 2. Family history of skin cancer. 3. Smoker. Post-Operative Diagnosis: 1. 1.5 cm soft tissue mass, clinical hemangioma, right long finger on dorsal radial aspect at PIP joint. 2. Family history of skin cancer. 3. Smoker. Surgery/Procedure Performed:: Excision 1.5 cm soft tissue mass, clinical hemangioma, right long finger on dorsal radial aspect at PIP joint. Description of Surgical Findings:: 39 year old man presents with a soft tissue mass right long finger on the dorsal radial aspect at the level of the PIP joint that has increased in size over the last several months. He is able to make a fist without difficulty. He denies and paresthesias. He is right hand dominant. He denies trauma. He denies fever. He denies any recent infection. An x-ray was done which showed soft tissue prominence at the level of the distal end of the third proximal phalanx consistent with a soft tissue mass without underlying erosion. Patient was informed of the risks and complications of the procedure including alternatives to surgery. These were discussed with the patient personally. Patient voices understanding and wishes to proceed. Some of the risks and complications were included in a form from the [employer]. Some of the risks and complications that were discussed included but were not inclusive of failure to diagnose including symptom relief, pain, infection, numbness, stiffness, loss of digit, RSD (CRPS), need for further surgery, contracture, and wound healing problems. Encouraged patient to stop smoking as it may have deleterious effects on wound healing. Total tourniquet time - 13 minutes. expense analyst: None Type of Anesthesia:: Local MAC - xylocaine with epinephrine digital metacarpal block and IV sedation. Specimen's removed: Soft tissue mass, clinical hemangioma, right long finger on dorsal radial aspect at PIP joint to Pathology. Drains: None. Estimated Blood Loss (mL): 2 ml. Description of Procedure: Patient was taken to OR in supine position and was given IV sedation. The right hand was prepped and draped in the usual fashion. SCD's were placed for DVT prophylaxis. Perioperative antibiotics were given intravenously. The right long finger was infiltrated with xylocaine and epinephrine with a digital metacarpal block. After waiting 5 minutes for the anesthetic to take effect, a tourniquet was placed at the base of the right long finger. Under loupe magnification, I made an oblique elliptical incision over the mass and dissected into the subcutaneous tissue. A vascular mass was seen consistent with a hemangioma. The mass was larger after it was dissected free down to the extensor tendon. It did not involve the tendon. The vascular mass measured 1.5 cm. The wound was irrigated with saline. The vascular mass was sent to Pathology for analysis to rule out carcinoma. The tourniquet was released after 13 minutes. Hemostasis was obtained with electrocautery and gentle pressure. The wound was closed primarily with 5-0 Nylon simple interrupted sutures and vertical mattress interrupted sutures. The length of the layered closure was 1.2 cm. Antibiotic ointment was applied to the suture line followed by 2x2 gauze and a 2 inch Jen wrap. Patient tolerated the procedure well and was sent to PACU in satisfactory condition. While there, the finger tip developed a little change in color. The compression dressing was removed. The finger pinked up without problem. Prior to discharge, the Jen wrap was redone a little less tight. Patient will be sent home on antibiotics and pain medication. Patient will followup in a week for a wound check and for discussion of the pathology report. I will remove the sutures in 2 weeks. Grafts/Implants Used: None. - Complications None. - Admit VTE Documentation VTE Present on Admission: No VTE Mechan Device Prophylaxis: SCD's VTE Pharm Prophylaxis ordered?: No Code Visit Surgery Charges CPT - 17269 ICD-10 - R22.31, D18.01, Z80.8, F17.200
[2019-11-09 15:05] VITALS: BP 115/67; BP 152/88; PULSE 98; RESP 18; TEMP 36.6; O2SAT 93
--- NOTE | 2019-11-09 15:08 | PCM.DC ---
You will use the following diet at home:: No restrictions Discharge Activity: May not drive while taking narcotic pain medications., May Shower - place plastic bag over right hand when showering., - - keep right hand elevated. May shower in (days): 1 - wear plastic bag over right hand when showering. May resume sexual activity in: No Restrictions Weight Bearing Status: Weight bearing as tolerated Keep extremity elevated above heart level: Right Arm Call your doctor if your incision/area has: Continuous Slow Oozing, Sudden Increased Bleeding, Increased Pain/ Swelling, Increased Redness, Foul Smelling Discharge, Swelling at the incision site Call your doctor if you observe: Fever of 101 or Higher, Coldness, Increased Pain, Shortness of breath, Chest pain, Calf discomfort, Uncontrolled pain Suture Line Care: - - after dressing removed in the office, apply antibiotic ointment to suture line daily. Change Dressing in (Days):: 7 - will change in office. Cleanse incision/area with: - - place plastic bag over right hand when showering. Allergies/Adverse Reactions: Allergies codeine Allergy (Verified 11/09/19 12:28) Hives Medications to take at Discharge amlodipine 10 mg tablet 10 mg PO DAILY #90 tab 08/26/19 atorvastatin 20 mg tablet 20 mg PO QHS #90 tab 08/26/19 hydrochlorothiazide 25 mg tablet 25 mg PO DAILY #90 tab 08/26/19 metoprolol succinate 25 mg tablet,extended release 24 hr 25 mg PO DAILY #90 tab 08/26/19 doxazosin 2 mg tablet 2 mg PO DAILY #90 tab 09/28/19 Cefadroxil [Duricef] 500 mg PO BID #8 cap 11/09/19 Oxycodone HCl/Acetaminophen [Percocet 5/325] 1 tablet PO Q4H PRN PRN 7 Days #40 tablet 11/09/19 The following prescriptions were given: Cefadroxil [Duricef] 500 mg PO BID #8 cap Transmission Status: Pending to [id number] Oxycodone HCl/Acetaminophen [Percocet 5/325] 1 tablet PO Q4H PRN PRN 7 Days #40 tablet PRN Reason: Pain Score 4-5/10 Transmission Status: Sent to [id number] Primary Care Physician: Landen Ferraro MD [Primary Care Provider] - Test Results: Test results from this visit will be discussed in further detail at your follow-up appointment, if applicable. Please Follow Up With: Juwan Xiao MD When: one week. call [phone] for appt. Proposed Discharge Date: 11/09/19
[2019-11-09 15:10] VITALS: BP 133/90; BP 152/88; PULSE 95; RESP 18; O2SAT 95
[2019-11-09 15:15] VITALS: BP 125/87; BP 152/88; PULSE 89; RESP 18; O2SAT 95
[2019-11-09 15:21] VITALS: BP 132/83; BP 152/88; PULSE 87; RESP 18; TEMP 36.9; O2SAT 97
[2019-11-09 16:02] VITALS: BP 152/88
== END 2019-11-09 16:13 | disposition home or self-care (01) ==
LOC: SDC 11:53 → AC 11:54
PROVIDERS: PCP Internal Medicine; Referring Provider Surgery; Visit Provider Surgery
PROC: (CPT 11422; principal; 2019-11-09 13:45)
DX: D18.01 Hemangioma of skin and subcutaneous tissue (principal); I10 Essential (primary) hypertension; F41.9 Anxiety disorder, unspecified; F32.9 Major depressive disorder, single episode, unspecified; F17.200 Nicotine dependence, unspecified, uncomplicated; E78.00 Pure hypercholesterolemia, unspecified; Z80.8 Family history of malignant neoplasm of other organs or systems; Z87.442 Personal history of urinary calculi; Z79.899 Other long term (current) drug therapy
CPT/HCPCS: 11422; 12041; 88304; 88305; J7120; J2405

== ENCOUNTER → 2020-01-05 | Outpatient (CLI) | payer MEDICAID, SELFPAY ==
[2020-01-05 15:27] VITALS: BMI 26.7
[2020-01-05 16:56] LABS: Bacteria 0 SEEN /hpf (None Seen); Mucous, Urine 0 SEEN /hpf (<or=2+); Red Blood Cells-Urine 0 SEEN /hpf (0-5); Squamous Epithelial Cells - UA 0 SEEN /hpf (0-5); White Blood Cells 0 SEEN /hpf (0-5)
[2020-01-05 17:00] LABS: Color, Urine Yellow (Yellow); Glucose, Dipstick Normal (Normal); Ketone-Dipstick Negative (Negative); Leukocyte Esterase-Dipstick Negative /ul (Negative); Nitrite-Dipstick Negative (Negative); Occult Blood-Urine Negative /ul (Negative); Protein-Dipstick Negative (Negative); Urine Bilirubin Dipstick Negative (Negative); Urine Clarity Clear (Clear); Urine Urobilinogen Normal (Normal)
== END | disposition home or self-care (01) ==
LOC: LABSPEC 16:48
PROVIDERS: PCP Internal Medicine; Referring Provider Nurse Practitioner Family; Visit Provider Nurse Practitioner Family
DX: R10.9 Unspecified abdominal pain (principal)
CPT/HCPCS: 81001; 87086

== ENCOUNTER 2020-01-21 22:08 | Emergency (ER) | payer MEDICAID, SELFPAY ==
[2020-01-05 15:27] VITALS: BMI 26.7
[2020-01-21 22:10] VITALS: BP 158/89; PULSE 101; RESP 18; TEMP 36.8; O2SAT 96; BMI 27.0
--- NOTE | 2020-01-21 22:19 | ED.VIS.GEN ---
History of Present Illness Chief Complaint: Laceration Informant: Patient Onset: Yesterday Context: Sudden Onset Timing: Continuous Current Severity: Mild Maximum Severity: Mild Narrative: The patient is a 39-year-old male with history of tachycardia and hypertension that presents to the emergency department 18 hours after self-inflicted leg wound. The patient states that he was getting very upset with someone and not himself. He states he took a knife and made a small incision in his thigh. He denies it being a suicide attempt. He states he cannot puncture deeply. He states that his neighbors called police because of his welfare. On police arrival, they state the patient was calm and cooperative. He does feel safe at home. He is very upfront this was not an attempt to take his life. He states I know it was stupid, but I thought the pain would help. He denies alcohol or drug abuse. He is otherwise been in his normal state of health. Prior similar symptoms: No Recent Illness/Hospitalization: No Past Medical History - Allergies and Home Meds Allergies/Adverse Reactions: Allergies codeine Allergy (Verified 01/21/20 22:12) [facility] Primary Care Physician: Landen Ferraro MD [Primary Care Provider] - Prior records reviewed: Yes Past Medical History: - - Hypertension Surgical History: - Smoking Status: Current every day smoker - Family History Maternal Family History: Family History (Last Reviewed 11/27/19 @ 13:02 by Kathi Jacobson) Mother CVA (cerebral vascular accident) Hypertension Anxiety Grandmother Hypertension Anxiety Grandfather Myocardial infarction Father Alcoholism Other Arthritis Depression Diabetes Heart disease High cholesterol History of defect History of blood clots Skin cancer Suicide attempt Family History: Reports: Unknown Review of Systems General: Denies: Chills, Fever, Sweats Eyes: Denies: Visual changes - bilaterally, Diplopia ENT: Denies: Rhinorrhea, Sore throat Cardiovascular: Denies: Chest pain, Palpitations Respiratory: Denies: Dyspnea, Cough, Dyspnea on exertion Gastrointestinal: Denies: Abdominal pain, Nausea, Vomiting, Diarrhea, Melena, Hematochezia Genitourinary: Denies: Dysuria, Hematuria, Frequency Musculoskeletal: Denies: Back pain, Extremity Pain Skin: Denies: Rash, Wounds Neurological: Denies: Headache, Weakness, Numbness Physical Exam Vital Signs/Narrative: Vital Signs Temp Pulse Resp BP Pulse Ox 01/21/20 22:10 98.3 F 101 H 18 158/89 H 96 Inital Vital Signs reviewed: Yes General: Well nourished, Well developed, No Acute Distress Head: Normocephalic, Atraumatic Eyes: Perrl, EOMI ENT: Moist mucous membranes, No rhinorrhea Neck: Supple, Nontender Cardiovascular: Regular rate, Regular rhythm, No murmurs Respiratory: No distress, CTA bilaterally, Chest nontender Abdomen: Soft, Nontender, Nondistended, Normal bowel sounds Back: Nontender, Normal Inspection Extremities: No edema, Tenderness - Patient has a 1.5 cm laceration to the lower lateral right thigh. There is no significant hematoma or drainage. It is not deep. There is normal pulses. Skin: Normal color, No rash Neurological: Alert, Oriented x3, Cranial nerves II-XII grossly intact, Normal Strength, Normal Sensation Psychological: Normal affect, Normal Mood Diagnostic/Tx/Re-eval - Medical Decision Making The patient presents after self-inflicted wound. He states that he was not suicidal or homicidal. He is very upfront. He has good judgment and insight. He has forward thinking. Unfortunately, the wound has been open for 18 hours. I do not feel the primary closure would be of any benefit. The wound was cleaned, dressed, and Steri-Strips were applied. I did have a long conversation with him that if at any point he feels like his symptoms are worsening and he has having thoughts of self-harm he should return. He is comfortable with this plan of care. Impression 1. 1.5 cm right thigh laceration ED Disposition - Plan for ED Patient: Instructions: ED Laceration Old Not Sutr Referrals: Landen Ferraro MD [Primary Care Provider] -
== END 2020-01-21 23:08 | disposition home or self-care (01) ==
LOC: ED 22:47
PROVIDERS: Emergency Provider Emergency Medicine; PCP Internal Medicine
DX: S71.111A Laceration without foreign body, right thigh, initial encounter (principal); I10 Essential (primary) hypertension; F17.200 Nicotine dependence, unspecified, uncomplicated; X78.1XXA Intentional self-harm by knife, initial encounter; Y93.89 Activity, other specified; Y92.009 Unspecified place in unspecified non-institutional (private) residence as the place of occurrence of the external cause; Y99.8 Other external cause status
CPT/HCPCS: 99282

== ENCOUNTER → 2020-03-07 14:15 | Outpatient (CLI) | payer MEDICAID, SELFPAY ==
[2020-03-04 13:38] VITALS: BMI 27.0
--- NOTE | 2020-03-07 14:17 | EKG12_ITS ---
Test Reason : CP Blood Pressure : / mmHG Vent. Rate : 074 BPM Atrial Rate : 074 BPM P-R Int : 148 ms QRS Dur : 094 ms QT Int : 370 ms P-R-T Axes : 053 019 027 degrees QTc Int : 410 ms Normal sinus rhythm Normal ECG Confirmed by VANDANA WILSON MD ([id number]), hot tar roofer helper LENORA MTZ ([id number] on 03/08/2020 9:57:14 AM Referred By: Donell Salas Confirmed By:VANDANA WILSON MD
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
== END ==
PROVIDERS: PCP Internal Medicine; Referring Provider Nurse Practitioner Family; Visit Provider Nurse Practitioner Family
DX: R07.9 Chest pain, unspecified (principal)
CPT/HCPCS: 93005

== ENCOUNTER → 2020-04-29 | Outpatient (CLI) | payer MEDICAID, SELFPAY ==
[2020-03-04 13:38] VITALS: BMI 27.0
== END | disposition home or self-care (01) ==
LOC: LABSPEC 09:27
PROVIDERS: PCP Internal Medicine
DX: Z00.00 Encounter for general adult medical examination without abnormal findings (principal)
CPT/HCPCS: 87635; 94799; C9803; U0003

== ENCOUNTER → 2020-06-09 | Outpatient (CLI) | payer MEDICAID, SELFPAY ==
[2020-06-09 11:05] VITALS: BMI 27.0
[2020-06-09 15:21] LABS: Absolute Lymphocyte Count 3.42 X10^3/uL (0.83-4.51); Absolute Neutrophil Count 5.3 X10^3/uL (2.0-7.7); Basophil# 0.05 X10^3/uL; Basophil% 0.5 % (0-1); Eosinophil# 0.38 X10^3/uL; Eosinophils% 3.9 % (0-5); Hematocrit 50.5 % (40-54); Hemoglobin 16.9 g/dL (13.0-16.5); Lymphocyte # 3.42 X10^3/ul (4.0); Lymphocyte % 34.9 % (19-41); Mean Corp Hgb Conc 33.5 g/dL (32-36); Mean Corpuscular Hgb 30.6 pg (27.0-32.0); Mean Corpuscular Volume 91.5 fL (80-94); Mean Platelet Vol. 10.8 fl (6.2-12.0); Monocyte# 0.63 X10^3/uL; Monocyte% 6.4 % (0-10); NRBC Flagged by Analyzer 0 % (0-5); Neutrophil # 5.31 X10^3/uL (2.7-7.7); Neutrophil % 54.1 % (47-70); Platelet Count 281 K/mm3 (150-450); RBC Distribution Width CV 12.9 % (11.6-14.6); RBC Distribution Width SD 43.7 fl (35.1-43.9); Red Blood Count 5.52 M/mm3 (4.6-6.2); White Blood Count 9.8 K/mm3 (4.4-11.0)
[2020-06-09 16:45] LABS: ALB/GLOB Ratio 1.4 RATIO (0.9-2.4); AST(SGOT) 27 U/L (15-37); Alanine Aminotransfer ALT/SGPT 47 U/L (16-61); Albumin, Serum 4.6 g/dL (3.2-5.0); Alkaline Phosphatase 132 U/L (45-117); Anion Gap 7 (5-15); BUN 20 mg/dL (7-18); BUN/Creat Ratio 18.5 RATIO (10-20); Calcium,Total 9.9 mg/dL (8.5-10.1); Chloride 106 mmol/L (98-107); Cholesterol 233 mg/dL (200); Creatinine, Serum 1.08 mg/dL (0.70-1.30); EST Glomerular Filtration Rate 81 mL/min (>60); Est Glom Filt Rate - Afr Amer 98 mL/min (>60); Globulin 3.3 g/dL (2.2-4.2); Glucose 83 mg/dL (74-106); High Density Lipoprotein 38 mg/dL; Potassium 4.4 mmol/L (3.5-5.1); Protein, Total 7.9 g/dL (6.4-8.2); Sodium Level 140 mmol/L (136-145); Triglycerides 114 mg/dL; Very Low Density Lipoprotein 23 mg/dL (5-40)
== END | disposition home or self-care (01) ==
LOC: BIMLAB 11:46
PROVIDERS: PCP Internal Medicine; Referring Provider Nurse Practitioner Family; Visit Provider Nurse Practitioner Family
DX: E78.5 Hyperlipidemia, unspecified (principal); I10 Essential (primary) hypertension
CPT/HCPCS: 36415; 80053; 80061; 85025

== ENCOUNTER 2020-09-08 19:28 | Observation (INO) | payer MEDICAID, SELFPAY ==
[2020-06-09 11:05] VITALS: BMI 27.0
--- NOTE | 2020-09-08 | APP_PTH ---
PATIENT: DYLLAN CARDENAS LOC: MS3 U#:[id number] AGE/SX: 40/M ROOM: MS305 RE09/08/[address]: Dr. James Martin MD : 1980 BED: 1 DIS: 09/09/2020 SPEC #: [id number] RECD: 09/09/20 08:05 STATUS: REGIS RERonen #: [id number] CECILIO: 09/08/20 00:[address]: James Martin DEPT: SURGICAL PATHOLOGY RECD BY: Nataliya Stokes ENTERED: 09/09/20 08:42 SP TYPE: APPENDIX OTHR DR: Dr. Landen Ferraro MD Tissues: Appendix, NOS Procedures: Surgery Specimen Level III HEADER OPERATION: Laparoscopic appendectomy PRE-OP DIAGNOSIS: Acute appendicitis TISSUE SUBMITTED: Appendix MICROSCOPIC DIAGNOSIS Appendix, appendectomy: Acute necrotizing appendicitis. Acute serositis. AM:delta 09/12/20 MICROSCOPIC DESCRIPTION Slides are reviewed. GROSS DESCRIPTION Received in fixative is one container labeled with the patient's name and designated appendix. The specimen consists of an S-shaped appendix measuring 5 cm in length and up to 1 cm in diameter. The attached periappendiceal adipose tissue measures up to 2 cm in width. No obvious perforation is identified. The serosal surface is covered with andujar, purulent exudate. The lumen does not contain any fecalith. Legal Associate sections are submitted in one cassette. / SJ:delta 09/09/20 TC:2 CPT: 69068
[2020-09-08 19:29] VITALS: BP 152/109; PULSE 105; RESP 16; TEMP 36.2; O2SAT 97; BMI 26.9
--- NOTE | 2020-09-08 19:44 | CT_ITS ---
We are attempting to reach an attending provider to discuss findings. An addendum with communication details will be sent when the communication is complete. STUDY: CT ABDOMEN AND PELVIS WITHOUT CONTRAST REASON FOR EXAM: Male, 40 years old. LOW BACK PAIN AFTER WORKING TODAY RADIATION DOSAGE (If Supplied By Facility): CTDIvol = ( 8.65 ) mGy, DLP = ( 483.97 ) mGycm TECHNIQUE: Transaxial images were obtained from the dome of the diaphragm to the symphysis pubis without oral contrast, and without intravenous contrast. Sagittal and coronal images were reconstructed. Individualized dose optimization techniques were used for this CT. COMPARISON: Prior abdomen and pelvic CT exam of 10/01/2019 FINDINGS: Chronic mild elevation of the left diaphragm. Mild chronic atelectatic changes in the left lower lobe. Calcified granuloma at the right lung base. The visualized portions of the heart are within normal limits. Normal liver. Normal gallbladder and extrahepatic biliary system. Normal spleen. Normal pancreas. Normal bilateral adrenal glands. Normal right kidney. Normal left kidney. Food filled stomach. Normal small intestine. Normal colon. Enlarged appendix with periappendiceal edema. Normal abdominal aorta. Normal inferior vena cava. Normal retroperitoneum. Normal urinary bladder. Normal abdominal wall. Normal osseous structures. CT/Abdomen/Pelvis without Cont IMPRESSION: Enlarged appendix with periappendiceal edema are consistent with acute appendicitis. Negative for abscess. Minimal nonloculated fluid in the pelvis. No other acute abdominal or pelvic findings. Electronically Signed: Brooklyn Jimenez MD at 21:18 EST , Service support ,
[2020-09-08 19:56] LABS: Mucous, Urine 0 SEEN /hpf (<or=2+); Red Blood Cells-Urine 0 SEEN /hpf (0-5); Squamous Epithelial Cells - UA 0 SEEN /hpf (0-5); White Blood Cells 0 SEEN /hpf (0-5)
[2020-09-08 19:59] LABS: Color, Urine Yellow (Yellow); Glucose, Dipstick Normal (Normal); Ketone-Dipstick Negative (Negative); Leukocyte Esterase-Dipstick Negative /ul (Negative); Nitrite-Dipstick Negative (Negative); Occult Blood-Urine Negative /ul (Negative); Protein-Dipstick Negative (Negative); Urine Bilirubin Dipstick Negative (Negative); Urine Clarity Clear (Clear); Urine Urobilinogen Normal (Normal); Urine pH 6.5 (5.0 - 8.0)
[2020-09-08] MEDS: Morphine 4 MG/ML Syringe IV ×2 (20:08→22:19)
[2020-09-08] MEDS: Ondansetron 4 MG/2 ML Vial IV (20:08)
[2020-09-08 20:11] LABS: Bacteria 1+ /hpf (None Seen)
[2020-09-08 20:11] LABS: Absolute Lymphocyte Count 3.09 X10^3/uL (0.83-4.51); Absolute Neutrophil Count 7.9 X10^3/uL (2.0-7.7); Basophil# 0.05 X10^3/uL; Basophil% 0.4 % (0-1); Eosinophil# 0.31 X10^3/uL; Eosinophils% 2.6 % (0-5); Hematocrit 43.8 % (40-54); Lymphocyte # 3.09 X10^3/ul (4.0); Lymphocyte % 25.6 % (19-41); Mean Corp Hgb Conc 34.2 g/dL (32-36); Mean Corpuscular Hgb 31.6 pg (27.0-32.0); Mean Corpuscular Volume 92.4 fL (80-94); Mean Platelet Vol. 10.4 fl (6.2-12.0); Monocyte% 5.8 % (0-10); NRBC Flagged by Analyzer 0 % (0-5); Neutrophil # 7.89 X10^3/uL (2.7-7.7); Neutrophil % 65.4 % (47-70); Platelet Count 231 K/mm3 (150-450); RBC Distribution Width CV 13.6 % (11.6-14.6); RBC Distribution Width SD 46.4 fl (35.1-43.9); Red Blood Count 4.74 M/mm3 (4.6-6.2); White Blood Count 12.1 K/mm3 (4.4-11.0)
--- NOTE | 2020-09-08 20:18 | ED.DCSUM_ITS ---
- ER Visit Summary Date of Service: 09/08/20 Chief Complaint: Abdominal pain History of Present Illness: The patient is a 40 M who presents with abdominal pain. He states that started today. He was helping with a floor radha when he started feeling pain in the right lower quadrant. It radiates down to his groin. He has nausea without vomiting. No diarrhea or constipation. He denies any urinary symptoms. He denies any history of kidney stones. He is concerned about having a hernia. He has never had a hernia in the past but is concerned because he was lifting when this pain started. Physical Examination: Vital signs reviewed. HEENT exam unremarkable. Heart is regular rate and rhythm without murmurs. Lungs are clear to auscultation. Abdomen is soft with right lower quadrant tenderness to palpation. There are no masses or hernias felt. There is no guarding or rebound tenderness. Extremities reveal no edema. Skin exam normal. Neurologic exam normal. Test Results: White blood cell count 12.1, chloride 110. CAT scan of the abdomen pelvis shows an enlarged appendix with surrounding edema consistent with acute appendicitis Emergency Department Course and Treatment: The patient was given morphine and Zofran. He was then given a dose of Zosyn due to the appendicitis. I spoke with Dr. Martin. He requested a rapid Covid test. We will notify him of the results and and the patient go to the operating room Treatment Plan: [] Disposition: Admit to operating room Impression: Acute appendicitis This note was generated with [employer] dictation software. It may contain incorrect words, spelling, and punctuation that were not noted in review of the chart prior to signing ED Disposition - Plan for ED Patient: Referrals: Landen Ferraro MD [Primary Care Provider] -
[2020-09-08 20:27] LABS: ALB/GLOB Ratio 1.1 RATIO (0.9-2.4); AST(SGOT) 14 U/L (15-37); Alanine Aminotransfer ALT/SGPT 30 U/L (16-61); Alkaline Phosphatase 106 U/L (45-117); Anion Gap 5 (5-15); BUN 8 mg/dL (7-18); BUN/Creat Ratio 8.9 RATIO (10-20); Chloride 110 mmol/L (98-107); EST Glomerular Filtration Rate 100 mL/min (>60); Est Glom Filt Rate - Afr Amer 121 mL/min (>60); Estimated Creatinine Clearance 125.77 ml/min; Globulin 3.5 g/dL (2.2-4.2); Glucose 82 mg/dL (74-106); Protein, Total 7.5 g/dL (6.4-8.2); Sodium Level 142 mmol/L (136-145)
[2020-09-08 21:46] VITALS: BP 168/119; PULSE 107; RESP 18; TEMP 36.7; O2SAT 97; BMI 26.9
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
[2020-09-08 21:49] VITALS: BP 168/119; PULSE 107; RESP 18; TEMP 36.7; O2SAT 97
[2020-09-08 22:29] VITALS: BMI 25.7; BMI 26.9
[2020-09-08 22:48] VITALS: BP 157/115; PULSE 107; RESP 18; TEMP 38.2; O2SAT 98
[2020-09-08] MEDS: 0.9% Normal Saline 1,000 ML 125 ML IV (22:48)
[2020-09-08] MEDS: Acetaminophen 325 MG Tablet 650 MG PO (22:53)
[2020-09-08 23:39] VITALS: BP 149/101; PULSE 106; RESP 18; TEMP 37.7; O2SAT 96
[2020-09-09] VITALS (12 sets, daily range): BP systolic 124–150; BP diastolic 80–107; PULSE 70–107; RESP 16–18; TEMP 36.3–37.5; O2SAT 94–100; BMI 25.7
[2020-09-09] MEDS: HYDROmorphone 1 MG/ML Syringe IV ×2 (00:15→03:41)
[2020-09-09] MEDS: Bupiv/Epi 0.25% 30 ML Vial (06:00)
[2020-09-09] MEDS: Lactated Ringers 1,000 ML 100 ML IV (06:40)
[2020-09-09] MEDS: 0.9% Normal Saline 1,000 ML 125 ML IV (07:39)
--- NOTE | 2020-09-09 07:51 | OP.PCM_ITS ---
Problem List (1) Acute appendicitis Status: Acute Qualifiers: Acute appendicitis type: unspecified acute appendicitis type Qualified Code(s): K35.80 - Unspecified acute appendicitis Report of Operation Date of Procedure: 09/09/20 Pre-Operative Diagnosis: Acute appendicitis Post-Operative Diagnosis: Same Surgery/Procedure Performed:: Laparoscopic appendectomy Description of Procedure: The patient was brought into the operating room and general anesthesia was induced. The left arm was tucked and the abdomen was prepped and draped in usual sterile fashion. A small midline incision was made superior to the umbilicus and deepened to the level of the fascia. The fascia was elevated and incised. The peritoneum was also elevated and incised. A finger sweep was performed and a balloon trocar was placed into the abdomen and inflated. The abdomen was insufflated to 15 mmHg and the camera was inserted and the abdomen was inspected for any injuries upon entering the abdomen. There were none. The patient was placed in Trendelenburg position and a 5 mm ports placed in the left lower quadrant and suprapubic areas under direct visualization. Next using atraumatic bowel graspers the appendix was identified. The appendix was grasped and elevated and Enseal was used to take down the mesoappendix. A stapler was used to come across the base of the appendix. The appendix was very inflamed. There is purulent material in the pelvis. The appendix was then placed in Endo Catch bag and removed through the umbilical incision. The staple line was inspected and found to be hemostatic and intact. The 2 5 mm ports are removed under direct visualization. The balloon trocar was deflated and removed and all the air was removed from the abdomen. The umbilical incision fascia was closed with an 0 Vicryl [id number] suture. The incisions were then irrigated with saline and dried. Local anesthetic was injected into the incision sites. The skin incisions were then closed with interrupted 4-0 Monocryl suture and Steri- Strips. Bandages were applied and the patient was awoken and taken to PACU in stable condition. Patient tolerated the procedure well. - Admit VTE Documentation VTE Mechan Device Prophylaxis: SCD's
--- NOTE | 2020-09-09 07:54 | DCINST_ITS ---
Discharge Diet: Light diet - advance as tolerated Discharge Activity: May Not Drive - for 3-5 days or while taking narcotic pain meds. May shower in (days): 1 Lifting Restrictions: 20 lbs for 2 weeks Call your doctor if your incision/area has: Continuous Slow Oozing, Sudden Increased Bleeding, Increased Pain/ Swelling, Increased Redness, Foul Smelling Discharge Call your doctor if you observe: Fever of 101 or Higher Suture Line Care: Avoid Pulling/Pushing, Avoid Pinching/Bending Additional Dressing/Incision Instructions:: Keep dressing clean and dry. Change or remove dressing in 2 days. Leave steri strips for 1 week. May protect with a gauze bandaid. Medications to take at Discharge amlodipine 10 mg tablet 10 mg PO DAILY #90 tab 08/26/19 atorvastatin 20 mg tablet 20 mg PO QHS #90 tab 08/26/19 hydrochlorothiazide 25 mg tablet 25 mg PO DAILY #90 tab 08/26/19 doxazosin 2 mg tablet 2 mg PO DAILY #90 tab 09/28/19 metoprolol succinate 50 mg tablet,extended release 24 hr 50 mg PO DAILY #90 tab 11/27/19 ibuprofen 600 mg tablet 600 mg PO TID PRN #30 tab 01/05/20 cyclobenzaprine 10 mg tablet 5 - 10 mg PO TID PRN #30 tab 09/07/20 meloxicam 15 mg tablet 7.5 - 15 mg PO DAILY #30 tab 09/07/20 Acetaminophen [Tylenol Tablet] 650 mg PO Q4H PRN PRN tablet 09/09/20 Oxycodone [Oxyir] 5 - 10 mg PO Q4H PRN PRN 5 Days #30 tablet 09/09/20 Allergies/Adverse Reactions: Allergies codeine Allergy (Verified 09/08/20 19:31) Hives The following prescriptions were given: Oxycodone [Oxyir] 5 - 10 mg PO Q4H PRN PRN 5 Days #30 tablet PRN Reason: Pain Score 4-10 Transmission Status: Sent to [facility] Primary Care Physician: Landen Ferraro MD [Primary Care Provider] - Test Results: Test results from this visit will be discussed in further detail at your follow- up appointment, if applicable. Please Follow Up With: James Martin MD When: Please call to schedule 2 week follow up appointment. [phone]
[2020-09-09] MEDS: Acetaminophen 325 MG Tablet 650 MG PO (09:32)
[2020-09-09] MEDS: oxyCODONE 5 MG Tablet PO ×2 (09:32→13:27)
[2020-09-09] MEDS: Doxazosin 1 MG Tablet 2 MG PO (09:33)
[2020-09-09] MEDS: hydroCHLOROthiazide 25 MG Tablet PO (09:33)
[2020-09-09] MEDS: cycloBENZAPRine HCl 10 MG Tablet PO (09:34)
[2020-09-09] MEDS: Metoprolol(XL)Succ 50 MG Tablet PO (09:34)
[2020-09-09] MEDS: amLODIPine 10 MG Tablet PO (09:34)
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
== END 2020-09-09 13:59 | disposition home or self-care (01) ==
LOC: ED 19:57 → MS3 09-09 06:06
PROVIDERS: Admitting Provider Surgery; Emergency Provider Emergency Medicine; PCP Internal Medicine; Visit Provider Surgery
PROC: 0DTJ4ZZ Resection of Appendix, Percutaneous Endoscopic Approach (ICD-10-PCS; CPT 44970; principal; 2020-09-09 05:30)
DX: K35.80 Unspecified acute appendicitis (principal); I10 Essential (primary) hypertension; H91.92 Unspecified hearing loss, left ear; F17.200 Nicotine dependence, unspecified, uncomplicated; F41.9 Anxiety disorder, unspecified; F32.9 Major depressive disorder, single episode, unspecified; Z79.899 Other long term (current) drug therapy; Z86.718 Personal history of other venous thrombosis and embolism; M99.02 Segmental and somatic dysfunction of thoracic region; M99.03 Segmental and somatic dysfunction of lumbar region; M99.05 Segmental and somatic dysfunction of pelvic region
CPT/HCPCS: 00840; 44970; 74176; 80053; 81001; 85025; 87426; 88304; 96361; 96365; 96375; 96376; 99218; 99283; J7030; A4216; C1760; G0378; J2405

== ENCOUNTER → 2021-03-09 14:07 | Outpatient (CLI) | payer MEDICAID, SELFPAY ==
[2021-03-09 13:46] VITALS: BMI 26.1
[2021-03-09 15:40] LABS: ALB/GLOB Ratio 1.2 RATIO (0.9-2.4); AST(SGOT) 17 U/L (15-37); Alanine Aminotransfer ALT/SGPT 35 U/L (16-61); Alkaline Phosphatase 102 U/L (45-117); Anion Gap 4 (5-15); BUN 15 mg/dL (7-18); BUN/Creat Ratio 14.9 RATIO (10-20); Calcium,Total 9.6 mg/dL (8.5-10.1); Chloride 110 mmol/L (98-107); Creatinine, Serum 1.01 mg/dL (0.70-1.30); EST Glomerular Filtration Rate 88 mL/min (>60); Est Glom Filt Rate - Afr Amer 106 mL/min (>60); Globulin 3.4 g/dL (2.2-4.2); Glucose 104 mg/dL (74-106); Potassium 4.3 mmol/L (3.5-5.1); Protein, Total 7.4 g/dL (6.4-8.2); Sodium Level 140 mmol/L (136-145)
== END ==
PROVIDERS: PCP Internal Medicine; Referring Provider Internal Medicine; Visit Provider Internal Medicine
DX: I10 Essential (primary) hypertension (principal)
CPT/HCPCS: 36415; 80053

== ENCOUNTER → 2021-06-22 | Outpatient (CLI) | payer MEDICAID, SELFPAY | END | disposition home or self-care (01) | LOC: LABSPEC 13:56 | PROVIDERS: PCP Internal Medicine; Referring Provider Physician Assistant; Visit Provider Physician Assistant | DX: R05 Cough (principal) | CPT/HCPCS: 87635; U0005; U0003 ==

== ENCOUNTER 2021-06-25 11:41 | Emergency (ER) | payer MEDICAID, SELFPAY ==
[2021-06-25 11:42] VITALS: BP 145/101; PULSE 108; RESP 18; TEMP 36.7; O2SAT 96; BMI 25.0
[2021-06-25 11:48] VITALS: O2SAT 96
--- NOTE | 2021-06-25 13:07 | RAD_ITS ---
INDICATION: cough, congestion, CASTRO EXAMINATION/TECHNIQUE: X-RAY - XR Chest 2 Views COMPARISON: None. FINDINGS: The lungs are clear. The cardiomediastinal silhouette is unremarkable. No pleural effusion or pneumothorax. No acute osseous abnormalities. RAD/Chest PA and Lateral IMPRESSION: No acute radiographic abnormalities. Electronically Signed: Dylan Roque MD at 17:04 EDT Tel , Service support ,
[2021-06-25] MEDS: Ipratropium/Albuterol Sulfate 3 ML AMPUL.NEB INHALATION (13:13)
[2021-06-25 13:15] VITALS: PULSE 95; RESP 20
[2021-06-25] MEDS: predniSONE 20 MG Tablet 60 MG PO (13:25)
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
[2021-06-25 14:59] VITALS: BP 141/93; PULSE 101; RESP 18; O2SAT 97
== END 2021-06-25 15:02 | disposition home or self-care (01) ==
PROVIDERS: Emergency Provider Emergency Medicine; PCP Internal Medicine
DX: J06.9 Acute upper respiratory infection, unspecified (principal); F32.9 Major depressive disorder, single episode, unspecified; F41.9 Anxiety disorder, unspecified; I10 Essential (primary) hypertension; F17.210 Nicotine dependence, cigarettes, uncomplicated; Z79.899 Other long term (current) drug therapy
CPT/HCPCS: 71046; 94640; 99282

== ENCOUNTER → 2021-09-06 13:43 | Outpatient (CLI) | payer MEDICAID, SELFPAY ==
[2021-09-06 15:18] LABS: Absolute Lymphocyte Count 3.71 X10^3/uL (0.83-4.51); Absolute Neutrophil Count 2.6 X10^3/uL (2.0-7.7); Basophil# 0.08 X10^3/uL; Basophil% 1.1 % (0-1); Eosinophil# 0.45 X10^3/uL; Hematocrit 45.2 % (40-54); Hemoglobin 15.5 g/dL (13.0-16.5); Lymphocyte # 3.71 X10^3/ul (0.83-4.51); Lymphocyte % 49.8 % (19-41); Mean Corp Hgb Conc 34.3 g/dL (32-36); Mean Corpuscular Hgb 31.3 pg (27.0-32.0); Mean Corpuscular Volume 91.3 fL (80-94); Mean Platelet Vol. 10.6 fl (6.2-12.0); Monocyte% 8.1 % (0-10); NRBC Flagged by Analyzer 0 % (0-5); Neutrophil # 2.59 X10^3/uL (2.7-7.7); Neutrophil % 34.7 % (47-70); Platelet Count 274 K/mm3 (150-450); RBC Distribution Width CV 13.4 % (11.6-14.6); RBC Distribution Width SD 45.2 fl (35.1-43.9); Red Blood Count 4.95 M/mm3 (4.6-6.2); White Blood Count 7.5 K/mm3 (4.4-11.0)
[2021-09-06 15:36] LABS: ALB/GLOB Ratio 1.2 RATIO (0.9-2.4); AST(SGOT) 20 U/L (15-37); Alanine Aminotransfer ALT/SGPT 35 U/L (16-61); Alkaline Phosphatase 99 U/L (45-117); Anion Gap 6 (5-15); BUN 10 mg/dL (7-18); BUN/Creat Ratio 11.9 RATIO (10-20); Calcium,Total 9.6 mg/dL (8.5-10.1); Chloride 109 mmol/L (98-107); Cholesterol 204 mg/dL (200); Creatinine, Serum 0.84 mg/dL (0.70-1.30); EST Glomerular Filtration Rate 108 mL/min (>60); Est Glom Filt Rate - Afr Amer 131 mL/min (>60); Globulin 3.2 g/dL (2.2-4.2); Glucose 93 mg/dL (74-106); High Density Lipoprotein 37 mg/dL; Protein, Total 7.2 g/dL (6.4-8.2); Sodium Level 142 mmol/L (136-145); Triglycerides 134 mg/dL; Very Low Density Lipoprotein 27 mg/dL (5-40)
== END ==
PROVIDERS: PCP Internal Medicine; Visit Provider Internal Medicine
DX: I10 Essential (primary) hypertension (principal)
CPT/HCPCS: 36415; 80053; 80061; 85025

== ENCOUNTER → 2022-02-09 | Outpatient (CLI) | payer MEDICAID, SELFPAY ==
[2022-02-09 12:28] LABS: Anion Gap 3 (5-15); BUN 11 mg/dL (7-18); BUN/Creat Ratio 12.5 RATIO (10-20); Calcium,Total 9.4 mg/dL (8.5-10.1); Chloride 111 mmol/L (98-107); Creatinine, Serum 0.88 mg/dL (0.70-1.30); EST Glomerular Filtration Rate 102 mL/min (>60); Est Glom Filt Rate - Afr Amer 124 mL/min (>60); Glucose 108 mg/dL (74-106); Potassium 3.9 mmol/L (3.5-5.1); Sodium Level 141 mmol/L (136-145)
== END | disposition home or self-care (01) ==
LOC: BIMLAB 11:08
PROVIDERS: PCP Internal Medicine; Referring Provider Internal Medicine; Visit Provider Internal Medicine
DX: I10 Essential (primary) hypertension (principal)
CPT/HCPCS: 36415; 80048

== ENCOUNTER 2022-04-23 17:44 | Emergency (ER) | payer MEDICAID, SELFPAY ==
[2022-04-23 17:45] VITALS: BP 153/116; PULSE 94; RESP 16; TEMP 36.6; O2SAT 97; BMI 24.3
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
== END 2022-04-23 18:20 | disposition home or self-care (01) ==
LOC: ED 18:19
PROVIDERS: Emergency Provider Emergency Medicine; PCP Internal Medicine; Visit Provider Emergency Medicine
DX: M67.461 Ganglion, right knee (principal); M79.661 Pain in right lower leg; I10 Essential (primary) hypertension; F17.210 Nicotine dependence, cigarettes, uncomplicated
CPT/HCPCS: 99282

== ENCOUNTER → 2022-04-27 | Outpatient (CLI) | payer MEDICAID, SELFPAY ==
--- NOTE | 2022-04-27 15:21 | VDLE_ITS ---
Reason For Study: Pain RIGHT GSV is normal. CFV is compressible, spontaneous, phasic, competent and demonstrates normal augmentation. FV is compressible, spontaneous, phasic, competent and demonstrates normal augmentation. POP V is compressible, spontaneous, phasic, competent and demonstrates normal augmentation. T/P Trunk is compressible. PTV is compressible. RT PerV is compressible. Procedure This is a venous duplex using B-mode, color flow and spectral Doppler. Exam performed in department. A preliminary report was called and/or faxed to Miguel. VL/Venous Duplex US, Unilateral Interpretation Summary Deep veins of the right lower extremity are patent and compressible segmentally . There is no evidence of right lower extremity deep vein thrombosis. Valvular competence johnathon ears intact within the proximal deep venous system on the right . The right great saphenous vein a ppears patent and compressible segmentally. Ordering Physician: Johnnie Rivera Referring Physician: Landen Ferraro Performed By: Milagro Howe RVT
== END | disposition home or self-care (01) ==
PROVIDERS: PCP Internal Medicine; Visit Provider Orthopaedic Surgery
DX: M79.661 Pain in right lower leg (principal)
CPT/HCPCS: 93971

== ENCOUNTER → 2022-09-13 | Outpatient (CLI) | payer MEDICAID, SELFPAY ==
--- NOTE | 2022-09-13 17:25 | RAD_ITS ---
STUDY: X-RAY - LUMBAR SPINE REASON FOR EXAM: Male, 42 years old. Chronic Back Pain TECHNIQUE: 5 view(s) of the lumbar spine were obtained. COMPARISON: 07/25/2020 FINDINGS: Normal lumbar lordosis. There is no substantial scoliosis. There is a normal alignment of the vertebrae. There is multilevel endplate spondylosis of the lumbar vertebrae. There is multi-level degenerative disc disease with multi-level disc space narrowing. Facet hypertrophy lower lumbar spine. The soft tissue structures are unremarkable. RAD/L/S Spine Min 4 Views IMPRESSION: Degenerative changes of the spine, as detailed above. MRI would be useful. Electronically Signed: Taurus Robert MD at 17:38 EST ,
== END | disposition home or self-care (01) ==
LOC: RAD 17:18
PROVIDERS: PCP Internal Medicine; Visit Provider Internal Medicine
DX: M54.9 Dorsalgia, unspecified (principal); G89.29 Other chronic pain
CPT/HCPCS: 72110

== ENCOUNTER → 2022-11-27 | Outpatient (CLI) | payer MEDICAID, SELFPAY ==
--- NOTE | 2022-11-27 13:14 | MRI_ITS ---
HISTORY: DDD, low back pain, left leg pain TECHNIQUE: Multiplanar and multisequence MR images of the lumbar spine were obtained without intravenous contrast. 128 images. COMPARISON: XR 09/13/2022. FINDINGS: VERTEBRAE: Vertebral body heights maintained. Mild degenerative bone marrow endplate changes of L1-2 and L3-4. ALIGNMENT: No anterior or posterior subluxation. CONUS: Normal morphology and position of the conus medullaris at T12. INTERVERTEBRAL DISCS: T12-L1: No significant posterior disc protrusion, central canal stenosis, or foraminal narrowing based on the sagittal images. L1-2: No significant posterior disc protrusion, central canal stenosis, or foraminal narrowing. L2-3: Minimal disc bulge and facet arthropathy without significant central canal stenosis or foraminal narrowing. L3-4: Mild disc bulge with facet arthropathy resulting in minimal narrowing of the thecal sac and bilateral foramina. L4-5: Minimal disc bulge with facet arthropathy resulting in mild right foraminal narrowing. No significant central canal stenosis. L5-S1: No significant posterior disc protrusion, central canal stenosis, or foraminal narrowing. SOFT TISSUES: No paraspinal fluid collection. MRI/Spine Lumbar (Routine) IMPRESSION: Very mild degenerative disc disease in the lumbar spine without significant spinal canal stenosis. Mild foraminal narrowing as above. Electronically Signed: Ani Prajapati MD at 15:28 EST ,
== END | disposition home or self-care (01) ==
LOC: MRI 13:14
PROVIDERS: PCP Internal Medicine; Referring Provider Orthopaedic Surgery; Visit Provider Orthopaedic Surgery
DX: M51.26 Other intervertebral disc displacement, lumbar region (principal)
CPT/HCPCS: 72148

== ENCOUNTER → 2022-12-04 | Outpatient (CLI) | payer MEDICAID, SELFPAY ==
[2022-12-04 15:19] LABS: Absolute Lymphocyte Count 3.25 X10^3/uL (0.83-4.51); Absolute Neutrophil Count 3.9 X10^3/uL (2.0-7.7); Basophil# 0.08 X10^3/uL; Eosinophil# 0.41 X10^3/uL; Hematocrit 47.4 % (40-54); Hemoglobin 16.1 g/dL (13.0-16.5); Lymphocyte # 3.25 X10^3/ul (0.83-4.51); Lymphocyte % 39.8 % (19-41); Mean Corpuscular Hgb 32.3 pg (27.0-32.0); Mean Platelet Vol. 10.2 fl (6.2-12.0); Monocyte# 0.51 X10^3/uL; Monocyte% 6.3 % (0-10); NRBC Flagged by Analyzer 0 % (0-5); Neutrophil # 3.88 X10^3/uL (2.7-7.7); Neutrophil % 47.5 % (47-70); Platelet Count 285 K/mm3 (150-450); RBC Distribution Width CV 13.2 % (11.6-14.6); RBC Distribution Width SD 46.2 fl (35.1-43.9); Red Blood Count 4.99 M/mm3 (4.6-6.2); White Blood Count 8.2 K/mm3 (4.4-11.0)
[2022-12-04 15:54] LABS: ALB/GLOB Ratio 1.1 RATIO (0.9-2.4); AST(SGOT) 22 U/L (15-37); Alanine Aminotransfer ALT/SGPT 54 U/L (16-61); Albumin, Serum 4.2 g/dL (3.2-5.0); Alkaline Phosphatase 106 U/L (45-117); Anion Gap 6 (5-15); BUN 16 mg/dL (7-18); BUN/Creat Ratio 15.7 RATIO (10-20); Calcium,Total 9.9 mg/dL (8.5-10.1); Chloride 107 mmol/L (98-107); Cholesterol 281 mg/dL (200); Creatinine, Serum 1.02 mg/dL (0.70-1.30); EST Glomerular Filtration Rate 86 mL/min (>60); Est Glom Filt Rate - Afr Amer 104 mL/min (>60); Globulin 3.7 g/dL (2.2-4.2); Glucose 111 mg/dL (74-106); High Density Lipoprotein 47 mg/dL; Potassium 4.9 mmol/L (3.5-5.1); Protein, Total 7.9 g/dL (6.4-8.2); Sodium Level 140 mmol/L (136-145); Thyroid Stim Hormone (TSH) 1.55 uIU/mL (0.358-3.74); Triglycerides 138 mg/dL; Very Low Density Lipoprotein 28 mg/dL (5-40)
== END | disposition home or self-care (01) ==
LOC: BIMLAB 14:01
PROVIDERS: PCP Internal Medicine; Referring Provider Nurse Practitioner Family; Visit Provider Nurse Practitioner Family
DX: M54.9 Dorsalgia, unspecified (principal); G89.29 Other chronic pain; I10 Essential (primary) hypertension; E78.5 Hyperlipidemia, unspecified
CPT/HCPCS: 36415; 80053; 80061; 84443; 85025

== ENCOUNTER 2023-02-12 11:09 | Emergency (ER) | payer MEDICAID, SELFPAY ==
[2023-02-12 11:10] VITALS: BP 151/114; PULSE 110; RESP 16; TEMP 36.6; O2SAT 96; BMI 25.9
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
[2023-02-12] MEDS: guaiFENesin 1,200 MG Tablet 1200 MG PO (12:06)
[2023-02-12] MEDS: Amox/Clavulanate 875 MG Tablet PO (12:06)
[2023-02-12] MEDS: Naproxen 500 MG Tablet PO (12:06)
== END 2023-02-12 12:08 | disposition home or self-care (01) ==
LOC: ED 11:50
PROVIDERS: Emergency Provider Emergency Medicine; PCP Internal Medicine; Visit Provider Emergency Medicine
DX: K08.89 Other specified disorders of teeth and supporting structures (principal); J40 Bronchitis, not specified as acute or chronic; F17.210 Nicotine dependence, cigarettes, uncomplicated
CPT/HCPCS: 99284

== ENCOUNTER 2023-05-20 13:21 | Emergency (ER) | payer MEDICAID, SELFPAY ==
[2023-05-20 13:22] VITALS: BP 175/116; PULSE 131; RESP 18; TEMP 36.4; O2SAT 98; BMI 25.1
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
[2023-05-20 13:48] VITALS: BP 164/99; PULSE 105; RESP 18; O2SAT 95
[2023-05-20] MEDS: Ondansetron 4 MG/2 ML Vial IV (13:49)
[2023-05-20] MEDS: Morphine 4 MG/ML Syringe IV ×2 (13:49→16:29)
[2023-05-20 13:55] LABS: Absolute Lymphocyte Count 3.38 X10^3/uL (0.83-4.51); Absolute Neutrophil Count 5.1 X10^3/uL (2.0-7.7); Eosinophil# 0.38 X10^3/uL; Hematocrit 48.2 % (40-54); Hemoglobin 16.1 g/dL (13.0-16.5); Lymphocyte # 3.38 X10^3/ul (0.83-4.51); Lymphocyte % 35.3 % (19-41); Mean Corp Hgb Conc 33.4 g/dL (32-36); Mean Corpuscular Hgb 31.4 pg (27.0-32.0); Mean Platelet Vol. 10.2 fl (6.2-12.0); Monocyte# 0.56 X10^3/uL; Monocyte% 5.9 % (0-10); NRBC Flagged by Analyzer 0 % (0-5); Neutrophil # 5.13 X10^3/uL (2.7-7.7); Neutrophil % 53.6 % (47-70); Platelet Count 289 K/mm3 (150-450); RBC Distribution Width CV 13.4 % (11.6-14.6); RBC Distribution Width SD 46.5 fl (35.1-43.9); Red Blood Count 5.13 M/mm3 (4.6-6.2); White Blood Count 9.6 K/mm3 (4.4-11.0)
[2023-05-20 14:01] LABS: Anion Gap 7 (5-15); BUN 17 mg/dL (7-18); BUN/Creat Ratio 15.9 RATIO (10-20); Calcium,Total 9.4 mg/dL (8.5-10.1); Chloride 110 mmol/L (98-107); Creatinine, Serum 1.07 mg/dL (0.70-1.30); EST Glomerular Filtration Rate 81 mL/min (>60); Est Glom Filt Rate - Afr Amer 98 mL/min (>60); Estimated Creatinine Clearance 100.73 ml/min; Glucose 185 mg/dL (74-106); Potassium 3.7 mmol/L (3.5-5.1); Sodium Level 139 mmol/L (136-145)
[2023-05-20 15:04] LABS: Bacteria 0 SEEN /hpf (None Seen); Mucous, Urine 0 SEEN /hpf (<or=2+); Red Blood Cells-Urine 0 SEEN /hpf (0-5); Squamous Epithelial Cells - UA 0 SEEN /hpf (0-5); White Blood Cells 0 SEEN /hpf (0-5)
[2023-05-20 15:08] LABS: Color, Urine Yellow (Yellow); Glucose, Dipstick Normal (Normal); Leukocyte Esterase-Dipstick Negative /ul (Negative); Nitrite-Dipstick Negative (Negative); Occult Blood-Urine Negative /ul (Negative); Protein-Dipstick 15 mg/dl (Negative); Specific Gravity, Urine 1.025 (1.002-1.030); Urine Clarity Clear (Clear); Urine Urobilinogen 4 mg/dl (Normal)
[2023-05-20 15:15] LABS: Urine Bilirubin Dipstick 1 mg/dL (Negative)
[2023-05-20 15:16] LABS: Ketone-Dipstick 150 mg/dl (Negative)
--- NOTE | 2023-05-20 16:52 | ED.RN ---
Patient verbalized understanding of instructions.
== END 2023-05-20 16:58 | disposition home or self-care (01) ==
PROVIDERS: Emergency Provider Emergency Medicine; PCP Internal Medicine; Visit Provider Emergency Medicine
DX: S30.1XXA Contusion of abdominal wall, initial encounter (principal); S50.312A Abrasion of left elbow, initial encounter; R00.0 Tachycardia, unspecified; E78.5 Hyperlipidemia, unspecified; F17.210 Nicotine dependence, cigarettes, uncomplicated; I10 Essential (primary) hypertension; S20.222A Contusion of left back wall of thorax, initial encounter; V23.41XA Electric (assisted) bicycle driver injured in collision with car, pick-up truck or van in traffic accident, initial encounter
CPT/HCPCS: 71250; 74176; 80048; 81001; 85025; 93005; 96374; 96375; 96376; 99283; A4216; J2405

== ENCOUNTER 2024-01-16 17:34 | Emergency (ER) | payer MEDICAID, SELFPAY ==
[2024-01-16 17:35] VITALS: BP 132/92; PULSE 61; RESP 18; TEMP 36.3; O2SAT 96; BMI 23.8
--- NOTE | 2024-01-16 17:46 | RAD_ITS ---
STUDY: X-RAY - PELVIS AND LEFT HIP REASON FOR EXAM: Male, 43 years old. pain TECHNIQUE: 3 views of the pelvis and hip. COMPARISON: None. FINDINGS: There is a non-specific bowel gas pattern. Normal visualized soft tissue structures. Normal bilateral iliac wings, sacroiliac joints and visualized sacrum. Normal bilateral superior and inferior pubic rami. Normal pubic symphysis. Normal bilateral ischial tuberosities. Normal visualized femoral head. Normal acetabulum. Normal hip joint. RAD/HIP, UNI W/ Pelvis 2-3 Views IMPRESSION: Normal x-ray examination of the pelvis and hip. Electronically Signed: Gm العلي MD at 18:36 EDT ,
--- NOTE | 2024-01-16 17:46 | RAD_ITS ---
STUDY: X-RAY - LEFT ELBOW REASON FOR EXAM: Male, 43 years old. pain TECHNIQUE: 3 view(s) of the elbow. COMPARISON: None. FINDINGS: Normal visualized humerus, radius and ulna. Normal radiocapitellar and ulnotrochlear articulations. The soft tissue structures are unremarkable. RAD/Elbow min 3 Views IMPRESSION: Normal x-ray examination of the elbow. Electronically Signed: Gm العلي MD at 18:35 EDT ,
--- NOTE | 2024-01-16 17:46 | RAD_ITS ---
STUDY: X-RAY - LEFT KNEE REASON FOR EXAM: Male, 43 years old. pain TECHNIQUE: AP and lateral view(s) of the knee. COMPARISON: None. FINDINGS: Normal visualized distal femur. Normal visualized proximal tibia and fibula. Normal proximal tibiofibular articulation. Normal medial femorotibial compartment. Normal lateral femorotibial compartment. Normal patellofemoral articulation. The soft tissue structures are unremarkable. RAD/Knee 1 or 2 Views IMPRESSION: Normal x-ray examination of the knee. Electronically Signed: Gm العلي MD at 18:35 EDT ,
--- NOTE | 2024-01-16 17:46 | RAD_ITS ---
STUDY: X-RAY - LEFT SHOULDER REASON FOR EXAM: Male, 43 years old. PAIN TECHNIQUE: 2 view(s) of the shoulder. COMPARISON: None. FINDINGS: Normal glenohumeral articulation. Normal acromioclavicular joint. Normal acromion. Normal humeral head and visualized proximal humerus. The soft tissue structures are unremarkable. Normal visualized pulmonary apex. RAD/Shoulder min 2 Views IMPRESSION: Normal x-ray examination of the shoulder. Electronically Signed: Gm العلي MD at 18:40 EDT ,
--- NOTE | 2024-01-16 17:47 | RAD_ITS ---
STUDY: X-RAY CHEST REASON FOR EXAM: Male, 43 years old. rib pain TECHNIQUE: AP portable COMPARISON: June 1903.20 FINDINGS: The lungs are clear and expanded. There is no demonstrated pleural abnormality. Normal size heart. Normal mediastinum and collette. Normal visualized pulmonary arteries. Normal visualized aortic arch and descending thoracic aorta. Normal visualized thoracic spine. Normal visualized ribs, clavicles, and shoulders. There is no demonstrated abnormality of the visualized soft tissue structures of the upper abdomen. RAD/Chest 1 View (Portable) IMPRESSION: Normal x-ray examination of the chest. Electronically Signed: Gm العلي MD at 18:39 EDT ,
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
[2024-01-16] MEDS: Ketorolac 15 MG/ML Vial IV (17:59)
[2024-01-16] MEDS: Diphth,Pertuss(Acell),Tet Vac 0.5 ML Vial IM (18:29)
[2024-01-16] MEDS: Oxycodone/Apap 5/325 Tablet PO (19:20)
[2024-01-16] MEDS: Acetaminophen 325 MG Tablet 650 MG PO (19:20)
[2024-01-16] MEDS: Ondansetron ODT 4 MG Tablet PO (19:20)
[2024-01-16 19:34] VITALS: BP 177/92; PULSE 80; RESP 16; TEMP 36.6; O2SAT 99
== END 2024-01-16 19:50 | disposition home or self-care (01) ==
PROVIDERS: Emergency Provider Emergency Medicine; PCP Internal Medicine; Visit Provider Emergency Medicine
DX: S01.81XA Laceration without foreign body of other part of head, initial encounter (principal); S40.012A Contusion of left shoulder, initial encounter; F17.210 Nicotine dependence, cigarettes, uncomplicated; S50.312A Abrasion of left elbow, initial encounter; S80.02XA Contusion of left knee, initial encounter; S50.02XA Contusion of left elbow, initial encounter; R20.3 Hyperesthesia; S70.02XA Contusion of left hip, initial encounter; V23.41XA Electric (assisted) bicycle driver injured in collision with car, pick-up truck or van in traffic accident, initial encounter; I10 Essential (primary) hypertension; E78.5 Hyperlipidemia, unspecified; Z23 Encounter for immunization
CPT/HCPCS: 12011; 71045; 73030; 73080; 73502; 73560; 90471; 90715; 96374; 99285; A4216

== ENCOUNTER → 2024-03-23 | Outpatient (CLI) | payer MEDICAID, SELFPAY ==
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
== END | disposition home or self-care (01) ==
LOC: MRI 15:39
PROVIDERS: PCP Internal Medicine; Referring Provider Orthopaedic Surgery Sports Medicine; Visit Provider Orthopaedic Surgery Sports Medicine
DX: M25.512 Pain in left shoulder (principal)
CPT/HCPCS: 73221

== ENCOUNTER → 2024-05-06 | Outpatient (CLI) | payer MEDICAID, SELFPAY ==
[2024-05-06 16:42] LABS: Absolute Lymphocyte Count 3.35 X10^3/uL (0.83-4.51); Absolute Neutrophil Count 3.4 X10^3/uL (2.0-7.7); Basophil# 0.07 X10^3/uL; Basophil% 0.9 % (0-1); Eosinophil# 0.36 X10^3/uL; Eosinophils% 4.7 % (0-5); Hematocrit 46.3 % (40-54); Hemoglobin 15.4 g/dL (13.0-16.5); Lymphocyte # 3.35 X10^3/ul (0.83-4.51); Mean Corp Hgb Conc 33.3 g/dL (32-36); Mean Corpuscular Hgb 30.9 pg (27.0-32.0); Mean Corpuscular Volume 92.8 fL (80-94); Monocyte# 0.47 X10^3/uL; Monocyte% 6.2 % (0-10); NRBC Flagged by Analyzer 0 % (0-5); Neutrophil # 3.36 X10^3/uL (2.7-7.7); Neutrophil % 44.1 % (47-70); Platelet Count 351 K/mm3 (150-450); RBC Distribution Width CV 13.3 % (11.6-14.6); RBC Distribution Width SD 45.4 fl (35.1-43.9); Red Blood Count 4.99 M/mm3 (4.6-6.2); White Blood Count 7.6 K/mm3 (4.4-11.0)
[2024-05-06 17:07] LABS: ALB/GLOB Ratio 1.1 RATIO (0.9-2.4); AST(SGOT) 13 U/L (15-37); Alanine Aminotransfer ALT/SGPT 25 U/L (16-61); Albumin, Serum 3.7 g/dL (3.2-5.0); Alkaline Phosphatase 127 U/L (45-117); Anion Gap 4 (5-15); BUN 13 mg/dL (7-18); BUN/Creat Ratio 14.3 RATIO (10-20); Calcium,Total 9.4 mg/dL (8.5-10.1); Chloride 113 mmol/L (98-107); Cholesterol 209 mg/dL (200); Creatinine, Serum 0.91 mg/dL (0.70-1.30); EST Glomerular Filtration Rate 97 mL/min (>60); Est Glom Filt Rate - Afr Amer 118 mL/min (>60); Globulin 3.4 g/dL (2.2-4.2); Glucose 99 mg/dL (74-106); High Density Lipoprotein 38 mg/dL; Potassium 4.2 mmol/L (3.5-5.1); Protein, Total 7.1 g/dL (6.4-8.2); Sodium Level 143 mmol/L (136-145); Triglycerides 200 mg/dL; Very Low Density Lipoprotein 40 mg/dL (5-40)
== END | disposition home or self-care (01) ==
PROVIDERS: PCP Internal Medicine; Referring Provider Internal Medicine; Visit Provider Internal Medicine
DX: E78.5 Hyperlipidemia, unspecified (principal)
CPT/HCPCS: 36415; 80053; 80061; 85025

== ENCOUNTER 2024-06-12 10:00 | Outpatient (RCR) | payer MEDICAID, SELFPAY ==
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
--- NOTE | 2024-05-01 15:14 | HP.PTREVAL ---
Re-Evaluation Intro: Dr. Wenceslao Chamorro MD, It has been my pleasure to treat DYLLAN CARDENAS over the last 6 visits for L shoulder pain/hip pain L. Please see the progress note below for an update on the physical therapy plan of care! Subjective Subjective: Getting better . shoulder notas painful in the shoulder and can sleep better. 7/10 at night. Not bad to move it but hurts to lie on it. Stretching can bother L hip . Can walk a little better but still limited walking 7/10 in hip and walking is worse over a mile. Objective Objective/Function: Shoulder l AROM 150 elevation vs 160 on R, mild tightness transiently, er/ir symmetrical. Strength shoulder 4+ on L elevation and 4 er adn 4+ IR. Very forward scap and poor posture is not helping. Overall improved in shoulder and needs to strengthen to tolerance. Plan Plan Plan: 3x/week for one more month for both hip and shoulder treatment ... HIP : rollout and stretch L piriformis and glut progressing to hip stabs to HEP and then WB stabs and progression of funciton. Shoulder : RC and scap and postural strength to tolerance and to HEP, also end range of elevation stretching. Postural emphasis. Work to bands at home quickly. same goals appropriate nad 4 more week POC with fair prognosis with COMPLIANCE Balance/Gait/Functional tests Balance/Special Test Scores Quick DASH Score: 36.3625 Goals Goals Goal 1:: sleep without waking due to pain. Goal Time Frame: 2-4 Weeks Goal Progress: Progressing Goal 2:: Full rom L shoulder elevation and er and IR without increased pain Goal Time Frame: 4-6 Weeks Goal Progress: fncitonal Goal 3:: I appropriate HEP to limit future problems Goal Time Frame: 4-6 Weeks Goal Progress: progressing, need strengt Goal 4:: Put on shirt without hesitation or pain Goal Time Frame: 4-6 Weeks Goal Progress: Goal Met Goal 5:: qucikdash score 15 or better Goal Time Frame: 4-6 Weeks Goal Progress: Progressing Goal 6:: walk with out antalgia Begin jogging across street Goal Time Frame: 4-6 Weeks Goal Progress: NEW GOAL for hip Anticipated Interventions Anticipated Interventions Patient/Client Instruction: Educate patient on: Condition and Plan of Care For the Purpose of:: To decrease pain, To increase ROM, To improve muscle performance and motor function, To improve performance and independence with ADL's and To improve ability of physical actions for home/community/work/leisure Therapeutic Exercise to Include: Strength training, Flexibilty training, Passive ROM, Active ROM and Scapular Strength/Stabilization Comment: add hip to this For the Purpose of:: To decrease pain, To increase ROM, To improve nutrient delivery to tissue, To improve muscle performance and motor function, To increase tolerance to activity/condition/position and To improve ability of physical actions for home/community/work/leisure Manual Therapy Techniques to Include: Mobilization, Passive ROM and Soft tissue mobilization Comment: add hip stm For the Purpose of:: To decrease pain, To increase ROM and To improve nutrient delivery to tissue TENS: Yes Cryotherapy (ice pack, ice massage): Yes Thermo therapy (hot pack): Yes For the Purpose of:: To decrease pain and To increase ROM Re-Evaluation Ending Re-evaluation ending: Please do not hesitate to contact me at [phone] by phone or if you have questions or concerns regarding this new plan of care! Sincerely, Darrin Leong, DPT, OCS, CSCS
--- NOTE | 2024-06-12 10:17 | HP.PTDCSUM ---
Discharge Summary D/C summary: It has been my pleasure to treat DYLLAN CARDENAS referred by Dr. Wenceslao Chamorro MD, with the diagnosis of L shoulder pain/hip pain L for a total of 13 visit(s). Discharge Date: 06/12/24 Please see the following information for a summary of their discharge status. Subjective Subjective: Had injection helped get rid of 90% of time, only pain in shoulder when leans on it. Comfortable at rest. Life activity normal and moved man cave the other day. Doing band and db ex at home. Everyother day. Leg is much better 85% better, no hip pain lately, stiff at times. Sleep is OK. No f/u scheduled with doctor. Pain Left Hip: Pain Intensity (Out of 10): 4 L shoulder: Pain Intensity (Out of 10): 4 Overall Improvement % Improvement: 90 Objective Objective/Function: walks without antalgia and steps normal today. jogs awkward but able without pain. Full L UE AROM without pain today. strength L shoulder 4/5 ir/er, flexion, 5/5 bi and tri Overall doing well and ready to continue his ex via HEP on his own and progress funciton. Goals Goal 1:: sleep without waking due to pain. Goal Progress: Goal Met Goal 2:: Full rom L shoulder elevation and er and IR without increased pain Goal Progress: Goal Met Goal 3:: I appropriate HEP to limit future problems Goal Progress: Goal Met Goal 4:: Put on shirt without hesitation or pain Goal Progress: Goal Met Goal 5:: qucikdash score 15 or better Goal Progress: Progressing Goal 6:: walk with out antalgia Begin jogging across street Goal Progress: Goal Met Plan Plan: d/c to HEP D/C Information Discharge Comments: Hip adn shoulder doing well adn will continue via HEP d/c sentence: If there are questions or concerns regarding this patient's physical therapy, please feel free to call me at [phone]. Thank you for the referral of this patient. Sincerely, Darrin Leong, DPT, OCS, CSCS Balance/Gait/Functional tests Balance/Special Test Scores Quick DASH Score: 20.4525 Improvement % Improvement: 90
== END 2024-06-12 19:00 | disposition home or self-care (01) ==
LOC: PT 10:00
PROVIDERS: PCP Internal Medicine; Referring Provider Orthopaedic Surgery Sports Medicine; Visit Provider Orthopaedic Surgery Sports Medicine
DX: S32.599D Other specified fracture of unspecified pubis, subsequent encounter for fracture with routine healing (principal); M54.30 Sciatica, unspecified side
CPT/HCPCS: 97014; 97110; 97140; 97161; 97164; 97530; G0283

== ENCOUNTER → 2024-10-23 | Outpatient (CLI) | payer MEDICAID, SELFPAY ==
[2024-10-23 15:52] LABS: Anion Gap 4 (5-15); BUN 15 mg/dL (7-18); BUN/Creat Ratio 16.1 RATIO (10-20); Calcium,Total 9.7 mg/dL (8.5-10.1); Chloride 109 mmol/L (98-107); Cholesterol 231 mg/dL (200); Creatinine, Serum 0.93 mg/dL (0.70-1.30); EST Glomerular Filtration Rate 95 mL/min (>60); Est Glom Filt Rate - Afr Amer 114 mL/min (>60); Glucose 118 mg/dL (74-106); High Density Lipoprotein 49 mg/dL; Potassium 4.7 mmol/L (3.5-5.1); Sodium Level 140 mmol/L (136-145); Triglycerides 126 mg/dL; Very Low Density Lipoprotein 25 mg/dL (5-40)
== END | disposition home or self-care (01) ==
LOC: BIMLAB 10:57
PROVIDERS: PCP Internal Medicine; Referring Provider Internal Medicine; Visit Provider Internal Medicine
DX: I10 Essential (primary) hypertension (principal)
CPT/HCPCS: 36415; 80048; 80061

== ENCOUNTER 2025-01-14 10:18 | Emergency (ER) | payer MEDICAID, SELFPAY ==
[2025-01-14 10:19] VITALS: BP 136/91; PULSE 100; RESP 16; TEMP 37.2; O2SAT 99; BMI 23.7
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
== END 2025-01-14 11:27 | disposition home or self-care (01) ==
LOC: ED 11:01
PROVIDERS: Emergency Provider Emergency Medicine; PCP Internal Medicine; Visit Provider Emergency Medicine
DX: M25.562 Pain in left knee (principal); J44.9 Chronic obstructive pulmonary disease, unspecified; I10 Essential (primary) hypertension; E78.5 Hyperlipidemia, unspecified; F17.210 Nicotine dependence, cigarettes, uncomplicated; K21.9 Gastro-esophageal reflux disease without esophagitis
CPT/HCPCS: 99283

== ENCOUNTER 2025-01-27 08:10 | Day surgery (SDC) | payer MEDICAID, SELFPAY ==
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
[2025-01-27] VITALS (10 sets, daily range): BP systolic 109–131; BP diastolic 76–98; PULSE 75–102; RESP 16–18; TEMP 36.3–36.8; O2SAT 92–97; BMI 23.8
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
[2025-01-27] MEDS: Lactated Ringers 1,000 ML 15 ML IV (09:04)
[2025-01-27 10:13] LABS: Anion Gap 12 (5-15); BUN 14 mg/dL (4-19); BUN/Creat Ratio 14.4 RATIO (10-20); Calcium,Total 9.4 mg/dL (7.6-11.0); Carbon Dioxide 20.3 mmol/L (21.0-32.0); Chloride 108 mmol/L (98-108); EST Glomerular Filtration Rate 97 (>60); Estimated Creatinine Clearance 105.62 ml/min (50-250); Glucose 101 mg/dL (70-99); Potassium 4.6 mmol/L (3.3-5.1); Sodium Level 140 mmol/L (133-145)
[2025-01-27] MEDS: Cefazolin 2 GM in 0.9% Normal Saline (100mL Bag) 100 ML IV (10:41)
[2025-01-27] MEDS: Epinephrine (1 mg/ml) 1 MG/ML VIAL (11:17)
--- NOTE | 2025-01-27 11:37 | PCM.OPRPT ---
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 Account Executive: елена Tasks completed by seed laboratory assistant: Retracting Additional physical therapy assistant instructor?: No Type of Anesthesia: Block,Regional and General RN Documented Start/Stop Times: Operation Date: 01/27/25 11:10 Case Time Into Pre-Op 01/27/25 08:27 Anesthesia Start 01/27/25 10:41 Into Room 01/27/25 10:41 Procedure Start 01/27/25 11:03 Procedure End 01/27/25 11:34 Procedure Start Time: 11:03 Procedure Stop Time: 11:34 Select all DRAINS/GRAFTS/IMPLANTS that apply: Implanted device Implanted device details: Arthrex 4.75 mm bio composite swivel lock anchor and fiber tape Estimated Blood Loss: 25 Specimen collected: No Description of surgery: Patient brought to the operating room theater. Placed supine on the table. General anesthesia induced. Patient transferred left side up lateral decubitus beanbag positioner. Axillary roll used. SCDs on the legs. All bony prominences padded. 2 g IV Ancef administered prior to the start of the case. Upper extremity prepped and draped in the usual sterile fashion with chlorhexidine-based prep solution allowing over 3 minutes drying time prior to draping. Upper extremity and abduction traction with the arm in 40 degrees of abduction with 10 pounds of inline traction. Preoperative timeout performed to confirm the site patient and the surgery. Began by inserting the arthroscope into the intra-articular portion of the shoulder through a standard posterior fossa portal. Did a full diagnostic arthroscopy. There is some mild grade 1 changes on the humeral head and the glenoid. I made an anterior portal through the rotator interval inside out spinal needle localization. Mild fraying and some mild synovitis of the rotator interval as well as some mild scarring of the superior aspect of the biceps to the supraspinatus tendon. I debrided these structures to release the scar tissue. Subscapularis was examined this appeared to be normal no fraying or partial tearing. Otherwise the biceps tendon attachment appeared very slight fraying otherwise normal stable attachment going into the appropriate biceps groove no subluxation. I then examined the undersurface of the supraspinatus and rest the rotator cuff tendons. There is obvious near full-thickness undersurface tearing of the supraspinatus just anterior to the junction of the supraspinatus and infraspinatus status post seen on the MRI and confirmed intraoperatively. I marked this with a spinal needle. I then inserted the arthroscope into the subacromial space. There is a moderate amount of benign-appearing bursitis. I created a lateral portal as well as using a cannula. I fully debrided the bursa. I did a subacromial decompression for about 3 mm using a high-speed selena. There is just mild downsloping of the anterior lateral leading edge. I identified the spinal needle and identified the tear. I completed the tear using elevator instrument and an ablator. The tear was mobile there was a small 1 cm x 1 cm tear. I used the Arthrex power pick instrument to stimulate healing at the greater tuberosity as well as removing any remaining soft tissue attachment at the repair site. I then used a scorpion instrument to pass an inverted horizontal mattress using fiber tape suture. This achieved good purchase of the tendon on either side of the tear. I then tapped and inserted an Arthrex 4.75 mm swivel lock bio composite anchor just lateral to the attachment site of the tendon at the greater tuberosity. This made a nice repair stable and solid the sutures were cut short and the stay sutures were removed. This achieved good purchase in the bone. Arthroscopy take pictures taken and saved onto the system throughout the case. Case terminated arthroscope withdrawn. Cleaned with wet dry dressing followed by closure with 3-0 Monocryl suture Steri-Strips Adaptic 4 x 4 gauze ABD dressing with tape and an abduction pillow sling for the upper extremity. Patient woken up from the general anesthetic transferred off the operating table taken postanesthetic care unit in stable condition. All sponge needle instrument counts were correct no complications plan for the patient pendulum exercises only follow-up in the office within 2 days time keep the incision clean and dry and discharged home according to day surgery criteria. CPT 76600, 94101, 56543 Surgical Findings: As above Complications Complications: No Admit VTE Documentation VTE Present on Admission: Yes VTE Mechan Device Prophylaxis: SCD's VTE Pharm Prophylaxis ordered?: No Reason prophylaxis not ordered: Treatment Not Indicated
--- NOTE | 2025-01-27 11:44 | EX.PCM.DISCH ---
Discharge Instructions Diet Discharge Diet: No restrictions Activity Ice area for (Minutes): 10 Lifting Restrictions: pendulums 4x/day, ok for hand wrist elbow rom Additional Activity Instructions:: ok to remove sling when resting, wear for sleep though Dressing / Incision Call your doctor if your incision/area has: Continuous Slow Oozing, Sudden Increased Bleeding, Increased Pain/ Swelling, Increased Redness, Foul Smelling Discharge and Swelling at the incision site Call your doctor if you observe: Fever of 101 or Higher, Coldness, Increased Pain and Numbness or Tingling Remove Dressing in: leave in place till F/U Cleanse incision/area with: Do not get Incision Wet Follow Up Care Please Follow Up With: Wenceslao Chamorro MD When: 2 days or within 2 weeks Test Results: Test results from this visit will be discussed in further detail at your follow-up appointment, if applicable. Discharge Plan Admission Attending Provider: Wenceslao Chamorro Primary Care Provider: Landen Ferraro Instructions Patient Instructions: After Shoulder Arthroscopy Print Language: Macedonian Discharge Orders/Prescriptions Prescriptions: New oxycodone-acetaminophen [Endocet] 5-325 mg tablet 1 tab PO Q4H MDD 6 PRN (Reason: pain) 5 Days Qty: 30 0RF No Action albuterol sulfate [Ventolin HFA] 90 mcg/actuation HFA aerosol inhaler 2 puff inhalation Q4H PRN PRN (Reason: Wheezing) Qty: 8.5 0RF atorvastatin 40 mg tablet 40 mg PO QHS Qty: 90 1RF baclofen 20 mg tablet 20 mg PO QHS PRN (Reason: muscle spasm) Qty: 60 2RF meloxicam 15 mg tablet 15 mg PO DAILY PRN (Reason: pain) Qty: 60 1RF metoprolol succinate 50 mg tablet extended release 24 hr 50 mg PO BID Qty: 180 1RF acetaminophen 325 MG tablet 650 mg PO Q4H PRN PRN (Reason: Pain 1-10 Or Fever) 0RF doxazosin 4 mg tablet 4 mg PO BID hydrocodone-acetaminophen 5-325 mg tablet 1 tab PO Q4H PRN PRN (Reason: Pain) 2 Days Qty: 10 0RF hydrochlorothiazide 25 mg tablet 25 mg PO DAILY Qty: 90 0RF omeprazole 40 mg capsule,delayed release(DR/EC) 40 mg PO DAILY Qty: 90 0RF Rx Instructions: Take 30 minutes before breakfast Referrals / Follow Up: Landen Ferraro MD [Primary Care Provider] - Wenceslao Chamorro MD [Med Staff - Active Staff] - Disposition Disposition (needs filled in before D/C Order can be placed): Home, Self Care
--- NOTE | 2025-01-27 11:45 | PCM.POST.ANE ---
Anesthesia: Postop Eval I Current Vital Signs Temperature: 97.8 F Pulse Rate: 88 Blood Pressure: 129/98 Respiratory Rate: 18 Pulse Ox: 97 Oxygen Delivery Method: Room Air Assessment Airway patent: Yes Spontaneous unlabored respirations: Yes Mental status: Awake and Calm nausea: No Vomiting: No Anesthesia Complication: No Fluid Hydration Crystalloid volume administer (ml): 1,000 Total IV fluid infused: 1,000 Progress Note Anesthesia document: Postop Eval 1 completed: No
--- NOTE | 2025-01-27 12:50 | POSTOPAN2_ITS ---
Anesthesia Postop Eval I Sum Postop Eval Completion status Anesthesia document: Postop Eval 1 completed: No Anesthesia Postop Eval I Summary Anesthesia Postop Eval I Summary: Anesthesia Postop Eval I: Assessment Summary Airway patent Yes 01/27/25 11:47 [email or web address] Spontaneous unlabored Yes 01/27/25 11:47 [email or web address] [email or web address] respirations Mental status Awake,Calm 01/27/25 11:47 [email or web address] nausea No 01/27/25 11:47 [email or web address] [email or web address] Vomiting No 01/27/25 11:47 [email or web address] Anesthesia Postop Eval I: Fluid Summary Crystalloid volume administer 1,000 01/27/25 11:47 [email or web address] (ml) Colloids volume administered ( ml) Blood Product volume administered (ml) Total IV fluid infused 1,000 01/27/25 11:47 [email or web address] Anesthesia Postop Eval I: Summary Notes Anesthesia Complication No 01/27/25 11:47 [email or web address] Anesthesia Complication Comment: Post-operative progress note Anesthesia: Postop Eval II Evaluation Mental status: Awake Pain Level: 0 nausea: No Vomiting: No
--- NOTE | 2025-01-27 12:50 | PCM.POSTANE2 ---
Anesthesia Postop Eval I Sum Postop Eval Completion status Anesthesia document: Postop Eval 1 completed: No Anesthesia Postop Eval I Summary Anesthesia Postop Eval I Summary: Anesthesia Postop Eval I: Assessment Summary Airway patent Yes 01/27/25 11:47 REACTOR FUELING [email or web address] Spontaneous unlabored Yes 01/27/25 11:47 REACTOR FUELING [email or web address] respirations Mental status Awake,Calm 01/27/25 11:47 REACTOR F[employer]ELING [email or web address] nausea No 01/27/25 11:47 REACTOR FUELING [email or web address] Vomiting No 01/27/25 11:47 REACTOR [email or web address] [email or web address] Anesthesia Postop Eval I: Fluid Summary Crystalloid volume administer 1,000 01/27/25 11:47 REACTOR FUELING [email or web address] (ml) Colloids volume administered ( ml) Blood Product volume administered (ml) Total IV fluid infused 1,000 01/27/25 11:47 REACTOR FUELING [email or web address] Anesthesia Postop Eval I: Summary Notes Anesthesia Complication No 01/27/25 11:47 REACTOR FUELING [email or web address] Anesthesia Complication Comment: Post-operative progress note Anesthesia: Postop Eval II Evaluation Mental status: Awake Pain Level: 0 nausea: No Vomiting: No
[2025-01-27] MEDS: HYDROcodone Bitartrate/Apap 5/325 Tablet PO (13:10)
== END 2025-01-27 13:21 | disposition home or self-care (01) ==
LOC: SDC 08:10 → AC 08:12
PROVIDERS: Anesthesiology; PCP Internal Medicine; Referring Provider Orthopaedic Surgery Sports Medicine; Visit Provider Orthopaedic Surgery Sports Medicine
PROC: (CPT 29805; principal; 2025-01-27 10:50)
DX: M75.102 Unspecified rotator cuff tear or rupture of left shoulder, not specified as traumatic (principal); J44.9 Chronic obstructive pulmonary disease, unspecified; S42.202A Unspecified fracture of upper end of left humerus, initial encounter for closed fracture; M75.42 Impingement syndrome of left shoulder; M75.52 Bursitis of left shoulder; M65.812 Other synovitis and tenosynovitis, left shoulder; X58.XXXA Exposure to other specified factors, initial encounter; I10 Essential (primary) hypertension; K21.9 Gastro-esophageal reflux disease without esophagitis; E78.5 Hyperlipidemia, unspecified; M54.9 Dorsalgia, unspecified; G89.29 Other chronic pain; F17.210 Nicotine dependence, cigarettes, uncomplicated; Z79.899 Other long term (current) drug therapy
CPT/HCPCS: 29827; 29826; 01630; 64415; 80048; C1713; J2405

== ENCOUNTER → 2025-04-21 | Outpatient (CLI) | payer MEDICAID, SELFPAY ==
[2025-04-21 15:12] LABS: Hematocrit 41.7 % (40-54); Hemoglobin 13.9 g/dL (13.0-16.5); Immature Granulocytes Count 0.040 X10^3/uL (0.0-0.0); Mean Corp Hgb Conc 33.3 g/dL (32-36); Mean Corpuscular Volume 92.7 fL (80-94); Mean Platelet Vol. 10.3 fl (6.2-12.0); NRBC Flagged by Analyzer 0 % (0-5); Platelet Count 311 K/mm3 (150-450); RBC Distribution Width CV 13.5 % (11.6-14.6); RBC Distribution Width SD 45.7 fl (35.1-43.9); Red Blood Count 4.50 M/mm3 (4.6-6.2); White Blood Count 7.8 K/mm3 (4.4-11.0)
[2025-04-21 15:33] LABS: AST(SGOT) 38 U/L (<=37); Alanine Aminotransfer ALT/SGPT 50 U/L (<=46); Albumin, Serum 4.4 g/dL (3.5-5.0); Alkaline Phosphatase 100 U/L (40-129); Anion Gap 10 (5-15); BUN 16 mg/dL (4-19); BUN/Creat Ratio 17.2 RATIO (10-20); Calcium,Total 9.8 mg/dL (7.6-11.0); Carbon Dioxide 25.7 mmol/L (21.0-32.0); Chloride 105 mmol/L (98-108); Cholesterol 258 mg/dL (<=200); Globulin 2.5 g/dL (2.2-4.2); Glucose 88 mg/dL (70-99); Low Density Lipoprotein Calc. 176 mg/dL; Potassium 5.0 mmol/L (3.3-5.1); Triglycerides 121 mg/dL; Very Low Density Lipoprotein 24 mg/dL (5-40); cholesterol:hdl ratio screen 4.43
== END | disposition home or self-care (01) ==
LOC: BIMLAB 11:17
PROVIDERS: PCP Internal Medicine; Referring Provider Internal Medicine; Visit Provider Internal Medicine
DX: E78.5 Hyperlipidemia, unspecified (principal); I10 Essential (primary) hypertension
CPT/HCPCS: 36415; 80053; 80061; 85025

== ENCOUNTER → 2025-05-20 | Outpatient (CLI) | payer MEDICAID, SELFPAY ==
--- NOTE | 2024-11-26 11:42 | EKG12_ITS ---
Test Reason : PRE OP Blood Pressure : */* mmHG Vent. Rate : 94 BPM Atrial Rate : 94 BPM P-R Int : 138 ms QRS Dur : 88 ms QT Int : 364 ms P-R-T Axes : 61 41 57 degrees QTcB Int : 455 ms Normal sinus rhythm Right atrial enlargement Moderate voltage criteria for LVH, may be normal variant Abnormal ECG Confirmed by Amadou Lozano ([id number]), editor book XIOMY WILLIAMSON ([id number]) on 11/27/2024 5:58:41 AM Referred By: Wenceslao Chamorro Confirmed By: Amadou Lozano
[2024-11-26 11:58] LABS: Hematocrit 41.5 % (40-54); Hemoglobin 13.6 g/dL (13.0-16.5); Mean Corp Hgb Conc 32.8 g/dL (32-36); Mean Corpuscular Volume 93.7 fL (80-94); Mean Platelet Vol. 9.7 fl (6.2-12.0); Platelet Count 268 K/mm3 (150-450); RBC Distribution Width CV 13.2 % (11.6-14.6); RBC Distribution Width SD 45.6 fl (35.1-43.9); Red Blood Count 4.43 M/mm3 (4.6-6.2); White Blood Count 8.1 K/mm3 (4.4-11.0)
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
== END | disposition home or self-care (01) ==
LOC: SDC 13:04
PROVIDERS: Anesthesiology; PCP Internal Medicine; Referring Provider Orthopaedic Surgery Sports Medicine; Visit Provider Orthopaedic Surgery Sports Medicine
DX: Z53.29 Procedure and treatment not carried out because of patient's decision for other reasons (principal)
CPT/HCPCS: 36415; 85027; 93005